=== PATIENT | male | born 1950 | race Hispanic/Latino ===

== ENCOUNTER 2017-02-21 11:36 | Inpatient (IN) | payer MEDICARE ==
[2017-02-21 12:15] LABS: Bilirubin,Urine NEG (Negative); Blood,Urine NEG (Negative); Ketones,Urine NEG (Negative); Leukocyte Esterase,Urine NEG (Negative); Mucus,Urine FEW /HPF; Nitrite,Urine NEG (Negative); Protein,Urine <15 mg/dL mg/dL (Negative); Urobilinogen,Urine < 2.0 mg/dL (<2.0)
--- NOTE | 2017-02-21 12:37 | Cat Scan Report ---
CT HEAD WITHOUT CONTRAST: HISTORY: Head injury. Serial contiguous axial images were obtained through the cranium. Intravenous contrast material was not administered. The ventricles are normal in size and appearance. There is no mass effect or midline shift. No areas of abnormally increased or decreased attenuation are seen. No mass lesion is seen. The mastoid air cells and visualized portions of the sinuses are normal. IMPRESSION: Cranial CT scan within normal limits.
--- NOTE | 2017-02-21 12:39 | Cat Scan Report ---
CT SCAN OF THE CERVICAL SPINE: HISTORY: Neck pain, injury. TECHNIQUE: Contiguous 1.25 mm axial images of the cervical spine were obtained. Sagittal and coronal reformatted images. FINDINGS: There is normal height and alignment of the cervical vertebral bodies. No fracture, subluxation or bone lesion. There is moderate multilevel disc space narrowing which is most prominent at C3-4 and C5-6. 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 The dens is intact. The prevertebral soft tissues are normal thickness. IMPRESSION: No evidence for acute injury. Cervical spondylosis. 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
[2017-02-21] MEDS ORDERED: ZOFRAN IV ONE (13:15)
[2017-02-21] MEDS ORDERED: NACL 0.9% 1000 ML 1,000 ML IV ONE (13:15)
[2017-02-21] MEDS ORDERED: MORPHINE IV ONE (13:15)
--- NOTE | 2017-02-21 13:31 | XRay Report ---
THORACIC SPINE, 3 VIEWS LUMBOSACRAL SPINE, 3 VIEWS History: Back pain after fall, incontinence. Findings: No comparison. Mild osteopenia is suspected. There is normal height and alignment of the thoracic and lumbar vertebral bodies. No compression deformity or malalignment is identified. Moderate disc space narrowing and anterior spurring is noted in the lower thoracic spine. Advanced disc space narrowing and facet arthropathy at L4-5 and L5-S1. Impression: Moderate thoracic and lumbar spondylosis. No acute injury is appreciated. Mild osteopenia.
[2017-02-21] MEDS ORDERED: DILAUDID IV ONE (13:57)
[2017-02-21 14:25] LABS: Basophils % (Auto) 0.5 % (0.0-1.8); Eosinophils % (Auto) 1.4 % (0.0-4.3); Hematocrit 36.6 % (35.5-45.6); Hemoglobin 12.2 gm/dl (11.8-15.2); Mean Corpuscular HGB Conc 33 % (32-34); Mean Corpuscular Hemoglobin 29 pg (28-32); Mean Corpuscular Volume 89 fl (84-94); Platelet Count 236 K/mm3 (140-440); Red Blood Count 4.14 M/mm3 (3.65-5.03); Red Cell Distribution Width 17.1 % (13.2-15.2); White Blood Count 6.6 K/mm3 (4.5-11.0)
--- NOTE | 2017-02-21 14:30 | Emergency Department Report ---
ED Fall HPI - General Chief Complaint: Fall Stated Complaint: NUMBNESS LEGS/LOW/UPPER BACK PAIN Time Seen by Provider: 02/21/17 13:14 Source: patient Mode of arrival: Ambulatory - History of Present Illness MD Complaint: fall -: Sudden Fall From: from height (distance) (3 feet) When Fall Occurred: 4-6 hours [employer] Fall Witnessed: yes, by family Place Fall Occurred: home Loss of Consciousness: none Prolonged Down Time?: no Symptoms Prior to Fall: none Location: back Location - Extremities: Left: Leg, Right: Leg Severity: moderate Severity scale (0 -10): 6 Quality: sharp, dull Context: tripped/slipped Associated Symptoms: numbness. denies: headache, neck pain, chest paint, shortness of breath, abdominal pain, hematuria, lightheaded, vertigo - Related Data Home Medications Medication Instructions Recorded Confirmed Last Taken Gabapentin [Neurontin] 400 mg PO BID 02/21/17 02/25/17 02/24/17 09:03 400mg Previous Rx's Medication Instructions Recorded Last Taken Type clonazePAM [Klonopin] 1 mg PO TID #30 tablet 08/21/16 02/21/17 Rx oxyCODONE [Roxicodone TAB] 30 mg PO Q4HR PRN #40 tablet 08/21/16 02/24/17 11:00 Rx 30mg Acetaminophen [Acetaminophen TAB] 325 mg PO Q4H PRN #30 tablet 02/23/17 Unknown Rx Bisacodyl [Dulcolax suppos] 10 mg MS QDAY PRN #10 supp.rect 02/23/17 Unknown Rx HYDROmorphone [Dilaudid] 2 mg PO Q3H PRN #30 tablet 02/23/17 02/24/17 08:53 Rx 2mg Magnesium Hydroxide [Milk of 30 ml PO Q4H PRN #30 oral.liqd 02/23/17 Unknown Rx Magnesia] predniSONE [Deltasone] 20 mg PO QDAY #30 tablet 02/23/17 02/24/17 09:03 Rx 20mg Allergies Allergy/AdvReac Type Severity Reaction Status Date / Time ketorolac tromethamine Allergy Rash Verified 02/21/17 11:48 [From Toradol] ED Review of Systems ROS: Stated complaint: NUMBNESS LEGS/LOW/UPPER BACK PAIN Other details as noted in HPI Constitutional: denies: chills, fever Eyes: denies: eye pain, eye discharge, vision change ENT: denies: ear pain, throat pain Respiratory: denies: cough, shortness of breath, wheezing Cardiovascular: denies: chest pain, palpitations Endocrine: no symptoms reported Gastrointestinal: denies: abdominal pain, nausea, diarrhea Genitourinary: denies: urgency, dysuria Musculoskeletal: denies: back pain, joint swelling, arthralgia Skin: denies: rash, lesions Neurological: denies: headache, weakness, paresthesias Psychiatric: denies: anxiety, depression Hematological/Lymphatic: denies: easy bleeding, easy bruising ED Past Medical Hx - Past Medical History Hx Deep Vein Thrombosis: (Unknown) Additional medical history: Subarachnoid cyst T1-T5. Laminectomy L4-5 - Surgical History Hx Pacemaker: No Hx Internal Defibrillator: No Hx Cholecystectomy: Yes Additional Surgical History: laminectomy L4-L5 2003. right inguinal Hernia Repair - Social History Smoking Status: Never Smoker Substance Use Type: None - Medications Home Medications: Home Medications Medication Instructions Recorded Confirmed Last Taken Type clonazePAM [Klonopin] 1 mg PO TID #30 tablet 08/21/16 02/25/17 02/21/17 Rx oxyCODONE [Roxicodone TAB] 30 mg PO Q4HR PRN #40 tablet 08/21/16 02/25/17 11:00 Rx 30mg Gabapentin [Neurontin] 400 mg PO BID 02/21/17 02/25/17 02/24/17 09:03 History 400mg Acetaminophen [Acetaminophen TAB] 325 mg PO Q4H PRN #30 tablet 02/23/17 Unknown Rx Bisacodyl [Dulcolax suppos] 10 mg MS QDAY PRN #10 supp.rect 02/23/17 02/25/17 Unknown Rx HYDROmorphone [Dilaudid] 2 mg PO Q3H PRN #30 tablet 02/23/17 02/25/17 02/24/17 08:53 Rx 2mg Magnesium Hydroxide [Milk of 30 ml PO Q4H PRN #30 oral.liqd 02/23/17 02/25/17 Unknown Rx Magnesia] predniSONE [Deltasone] 20 mg PO QDAY #30 tablet 02/23/17 02/25/17 02/24/17 09: 03 Rx 20mg ED Physical Exam - General Limitations: No Limitations General appearance: alert, in no apparent distress - Head Head exam: Present: atraumatic, normocephalic - Eye Eye exam: Present: normal appearance, PERRL - ENT ENT exam: Present: normal exam, normal orophraynx, mucous membranes moist - Neck Neck exam: Present: normal inspection - Respiratory Respiratory exam: Present: normal lung sounds bilaterally. Absent: respiratory distress - Cardiovascular Cardiovascular Exam: Present: regular rate, normal rhythm. Absent: systolic murmur, diastolic murmur, rubs, gallop - GI/Abdominal GI/Abdominal exam: Present: soft, normal bowel sounds. Absent: distended, tenderness, guarding, rebound - Rectal Rectal exam: Present: deferred - Extremities Exam Extremities exam: Present: normal inspection, full ROM (full rom but with pain) , normal capillary refill. Absent: tenderness, pedal edema, joint swelling, calf tenderness - Back Exam Back exam: Present: normal inspection, tenderness (paravertebral tenderness ), muscle spasm, paraspinal tenderness - Neurological Exam Neurological exam: Present: alert, oriented X3, CN II-XII intact, motor sensory deficit - Psychiatric Psychiatric exam: Present: normal affect, normal mood - Skin Skin exam: Present: warm, dry, intact, normal color. Absent: rash ED Course Vital Signs 02/21/17 02/21/17 02/21/17 11:37 12:57 12:58 Temperature 97.8 F Pulse Rate 103 H 91 H Respiratory 19 14 Rate Blood Pressure 138/95 129/77 Blood Pressure [Left] O2 Sat by Pulse 98 99 99 Oximetry 02/21/17 02/21/17 02/21/17 12:59 13:00 13:02 Temperature Pulse Rate 92 H 90 Respiratory 10 L 12 19 Rate Blood Pressure 129/77 123/79 Blood Pressure [Left] O2 Sat by Pulse 99 100 98 Oximetry 02/21/17 02/21/17 02/21/17 14:00 14:30 15:00 Temperature Pulse Rate 77 78 Respiratory 12 18 10 L Rate Blood Pressure 136/77 136/77 Blood Pressure [Left] O2 Sat by Pulse 100 98 Oximetry 02/21/17 02/21/17 02/21/17 16:00 17:00 21:13 Temperature Pulse Rate 86 85 82 Respiratory 12 11 L 20 Rate Blood Pressure 136/77 136/77 Blood Pressure 128/70 [Left] O2 Sat by Pulse 100 98 100 Oximetry ED Medical Decision Making - Lab Data Result diagrams: 02/21/17 13:55 02/22/17 04:47 - Medical Decision Making Patient with lower back pain , he is unable to get up frpm the bed , CT head / cspine / t spine / lumbar spine all with no evidence of emergency compression. Will admit for pain control and possible PT/rehab fro his back pain , talked to dr. pimentel and agree with plan for admission. Critical care attestation.: If time is entered above; I have spent that time in minutes in the direct care of this critically ill patient, excluding procedure time. ED Disposition Clinical Impression: Back pain at L4-L5 level Disposition: OP ADMITTED IP TO THIS HOSP Is pt being admited?: Yes Does the pt Need Aspirin: No Condition: Fair
[2017-02-21 14:32] LABS: Alanine Aminotransferase 13 units/L (7-56); Albumin 3.5 g/dL (3.9-5); Albumin/Globulin Ratio 1.5 %; Alkaline Phosphatase 73 units/L (35-129); Anion Gap 14 mmol/L; BUN/Creatinine Ratio 8.57; Bilirubin,Total 0.6 mg/dL (0.1-1.2); Blood Urea Nitrogen 6 mg/dL (9-20); Calcium 8.6 mg/dL (8.4-10.2); Carbon Dioxide 27 mmol/L (22-30); Chloride 101.7 mmol/L (98-107); Glucose 83 mg/dL (75-100); Potassium 3.2 mmol/L (3.6-5.0); Sodium 139 mmol/L (137-145); Total Protein 5.9 g/dL (6.3-8.2)
[2017-02-21] MEDS ORDERED: MORPHINE ONE (15:44)
--- NOTE | 2017-02-21 15:54 | Cat Scan Report ---
FINAL REPORT PROCEDURE: CT LUMBAR SPINE WO CON TECHNIQUE: Computerized axial tomography of the lumbar spine was performed from T12 to the sacrum without contrast material. HISTORY: Fall COMPARISON: 01/05/2016 FINDINGS: Diffuse osteoporosis of the bones. Areas of sclerosis including posterior sacrum anterior sacral areas, anterior SI joint regions anterior surface of the iliac bones and portions of sacral ala and scattered areas of the facets. Evidence of prior lumbar spine surgery. Severe disc space narrowing at the L4-5 level. No definitive evidence of acute fracture seen at this time. moderate disc bulging L4-5 mild to moderate L3-4. No definitive evidence of acute fracture suspected at this time. If symptoms and or concern persists recommend followup CT scan. Correlation with nuclear medicine bone scan may also be of use. MRI may be helpful. Aortic atherosclerosis IMPRESSION: No definite evidence of acute fracture
--- NOTE | 2017-02-21 16:08 | Cat Scan Report ---
FINAL REPORT PROCEDURE: CT THORACIC SPINE WO CON TECHNIQUE: Computerized axial tomography of the thoracic spine was performed from C7 - L1 without contrast material. HISTORY: Fall pain COMPARISON: 01/05/2016 FINDINGS: Mild to moderate thoracic spine kyphosis. Prominent anterior osteophytes right paracentral mid to lower thoracic spine with flowing eburnation. Multilevel facet arthropathy. Scattered sclerotic foci in the bones vertebral bodies posterior elements including right paracentral T2 vertebral body 7 x 6 millimeters. No definite evidence acute fracture COPD. Spiculated 2 millimeter opacity right upper lung zone. Posterior medial pleural thickening and slight atelectasis. Atherosclerotic aorta. Mild dextroscoliosis. IMPRESSION: No definite evidence of acute fracture
[2017-02-21] MEDS ORDERED: TYLENOL #3 PO ONE (17:15)
[2017-02-21] MEDS ORDERED: ATIVAN ONE (17:37)
[2017-02-21] MEDS ORDERED: ATIVAN IV ONE (17:38)
--- NOTE | 2017-02-21 20:03 | Magnetic Resonance Report ---
FINAL REPORT PROCEDURE: MR LUMBAR SPINE WO/W CON TECHNIQUE: Magnetic resonance imaging of the lumbar spine was performed using standard pulse sequences before and after the IV injection of paramagnetic contrast. CPT 10609 HISTORY: back pain COMPARISON: CT 02/21/2017 FINDINGS: L1-2: No significant abnormality . L2-3: No significant abnormality . L3-4: No significant abnormality . L4-5: There is disc space narrowing. Small posterior disc bulge and posterior osteophytes are noted. No significant spinal stenosis. Mild bilateral neural foraminal narrowing. Facet arthritic changes are noted. L5-S1: No significant abnormality . Other: No marrow edema is seen to suggest acute fracture. No abnormal enhancement is seen. Note that the entirety of the sacrum is not imaged or evaluated if there is concern for sacral fracture. IMPRESSION: No fracture is identified. No areas of abnormal enhancement. Note that the sacrum is not fully imaged on this exam.
--- NOTE | 2017-02-21 21:06 | History and Physical Report ---
History of Present Illness Date of examination: 02/21/17 Date of admission: 02/21/2017 Chief complaint: Chief complaint: Severe low back pain secondary to fall few hours ago. History of present illness: This is a 66 y/o male with h/o back surgery and low back pain presented with severe low back pain and difficulty walking. Patient apparently fell from a ladder 3 feet height on his back few hours ago. Patient has severe pain 10 over 10 with radiation into the right thigh. Patient had MRI in the emergency room and was negative for any acute findings. Patient has intractable pain and unable to walk secondary to pain hence being admitted for observation and treatment. No chest pain no shortness of breath. No weakness in the legs. Past medical History: h/o chronic back pain and generalized anxiety disorder Past surgical History: s/p back surgery Social History: Lives with family, denies any smoking, drinking and elicit drug abuse. Family History: Significant for hypertension Review of System: Constitutional: no fever, no chills, no weight loss Ears, eyes, nose, mouth and throat: no nasal congestion, no nasal discharge, no sinus pressure, no vision change, no red eye. Neck: No neck pain or rigidity. Cardiovascular: No chest pain, no orthopnea, no palpitations, no leg swelling Respiratory: No shortness of breath, no cough, no congestion, no wheezing Gastrointestinal: no abdominal pain, no nausea, no vomiting Genitourinary : no dysuria, no hematuria Musculoskeletal: Severe back pain 10 x 10 with radiation to the right thigh Integumentary: no rash, no pruritis Neurological: no paresthesias, no numbness, no tingling Endocrine: no cold or heat intolerance, no polyuria or polydipsia Hematologic/Lymphatic: no easy bruising, no easy bleeding, no gland swelling Allergic/Immunologic: no urticaria, no angioedema. Medications and Allergies Allergies Allergy/AdvReac Type Severity Reaction Status Date / Time ketorolac tromethamine Allergy Rash Verified 02/21/17 11:48 [From Toradol] Home Medications Medication Instructions Recorded Confirmed Last Taken Type clonazePAM [Klonopin] 1 mg PO TID #30 tablet 08/21/16 02/21/17 02/21/17 Rx oxyCODONE [Roxicodone TAB] 30 mg PO Q4HR PRN #40 tablet 08/21/16 02/21/17 Rx Gabapentin [Neurontin] 400 mg PO BID 02/21/17 02/21/17 02/21/17 History Exam - Physical Exam Narrative exam: Well-developed well-nourished male lying in bed with severe pain in the lower back. - Constitutional Vitals: Temp Pulse Resp BP Pulse Ox 97.8 F 85 11 L 136/77 98 02/21/17 11:37 02/21/17 17:00 02/21/17 17:00 02/21/17 17:00 02/21/17 17:00 General appearance: Present: no acute distress, well-nourished - EENT Eyes: Present: PERRL ENT: hearing intact, clear oral mucosa - Neck Neck: Present: supple, normal ROM - Respiratory Respiratory effort: normal Respiratory: bilateral: CTA - Cardiovascular Heart rate: 76 Rhythm: regular Heart Sounds: Present: S1 & S2. Absent: rub, click - Extremities Extremities: no ischemia, pulses symmetrical, No edema Extremity abnormal: other (straight leg raising test abnormal severe tenderness in the L5-S1 region) Peripheral Pulses: within normal limits - Abdominal General gastrointestinal: Present: soft, non-tender, non-distended, normal bowel sounds Male genitourinary: Present: normal - Rectal Rectal Exam: deferred - Integumentary Integumentary: Present: clear, warm, dry - Musculoskeletal Musculoskeletal: gait normal, strength equal bilaterally - Psychiatric Psychiatric: appropriate mood/affect, intact judgment & insight - Neurologic Neurologic: CNII-XII intact, moves all extremities - Allied Health Allied health notes reviewed: nursing, case management Results - Labs CBC & Chem 7: 02/21/17 13:55 02/21/17 13:55 Labs: Laboratory Last Values WBC 6.6 K/mm3 (4.5-11.0) 02/21/17 13:55 RBC 4.14 M/mm3 (3.65-5.03) 02/21/17 13:55 Hgb 12.2 gm/dl (11.8-15.2) 02/21/17 13:55 Hct 36.6 % (35.5-45.6) 02/21/17 13:55 MCV 89 fl (84-94) 02/21/17 13:55 MCH 29 pg (28-32) 02/21/17 13:55 MCHC 33 % (32-34) 02/21/17 13:55 RDW 17.1 % (13.2-15.2) H 02/21/17 13:55 Plt Count 236 K/mm3 (140-440) 02/21/17 13:55 Lymph % (Auto) 29.4 % (13.4-35.0) 02/21/17 13:55 [place] % (Auto) 9.7 % (0.0-7.3) H 02/21/17 13:55 Eos % (Auto) 1.4 % (0.0-4.3) 02/21/17 13:55 Baso % (Auto) 0.5 % (0.0-1.8) 02/21/17 13:55 Lymph # 1.9 K/mm3 (1.2-5.4) 02/21/17 13:55 [place] # 0.6 K/mm3 (0.0-0.8) 02/21/17 13:55 Eos # 0.1 K/mm3 (0.0-0.4) 02/21/17 13:55 Baso # 0.0 K/mm3 (0.0-0.1) 02/21/17 13:55 Seg Neutrophils % 59.0 % (40.0-70.0) 02/21/17 13:55 Seg Neutrophils # 3.9 K/mm3 (1.8-7.7) 02/21/17 13:55 Sodium 139 mmol/L (137-145) 02/21/17 13:55 Potassium 3.2 mmol/L (3.6-5.0) L 02/21/17 13:55 Chloride 101.7 mmol/L (98-107) 02/21/17 13:55 Carbon Dioxide 27 mmol/L (22-30) 02/21/17 13:55 Anion Gap 14 mmol/L 02/21/17 13:55 BUN 6 mg/dL (9-20) L 02/21/17 13:55 Creatinine 0.7 mg/dL (0.8-1.5) L 02/21/17 13:55 Estimated GFR > 60 ml/min 02/21/17 13:55 BUN/Creatinine Ratio 8.57 % 02/21/17 13:55 Glucose 83 mg/dL (75-100) 02/21/17 13:55 Calcium 8.6 mg/dL (8.4-10.2) 02/21/17 13:55 Total Bilirubin 0.6 mg/dL (0.1-1.2) 02/21/17 13:55 AST 13 units/L (5-40) 02/21/17 13:55 ALT 13 units/L (7-56) 02/21/17 13:55 Alkaline Phosphatase 73 units/L (35-129) 02/21/17 13:55 Total Protein 5.9 g/dL (6.3-8.2) L 02/21/17 13:55 Albumin 3.5 g/dL (3.9-5) L 02/21/17 13:55 Albumin/Globulin Ratio 1.5 % 02/21/17 13:55 Urine Color Yellow (Yellow) 02/21/17 12:00 Urine Turbidity Clear (Clear) 02/21/17 12:00 Urine pH 5.0 (5.0-7.0) 02/21/17 12:00 Ur Specific [place] 1.020 (1.003-1.030) 02/21/17 12:00 Urine Protein <15 mg/dl mg/dL (Negative) 02/21/17 12:00 Urine Glucose (UA) Neg mg/dL (Negative) 02/21/17 12:00 Urine Ketones Neg mg/dL (Negative) 02/21/17 12:00 Urine Blood Neg (Negative) 02/21/17 12:00 Urine Nitrite Neg (Negative) 02/21/17 12:00 Urine Bilirubin Neg (Negative) 02/21/17 12:00 Urine Urobilinogen < 2.0 mg/dL (<2.0) 02/21/17 12:00 Ur Leukocyte Esterase Neg (Negative) 02/21/17 12:00 Urine WBC (Auto) 4.0 /HPF (0.0-6.0) 02/21/17 12:00 Urine RBC (Auto) 4.0 /HPF (0.0-6.0) 02/21/17 12:00 U Epithel Cells (Auto) < 1.0 /HPF (0-13.0) 02/21/17 12:00 Urine Mucus Few /HPF 02/21/17 12:00 Short CBC 02/21/17 Range/Units 13:55 WBC 6.6 (4.5-11.0) K/mm3 Hgb 12.2 (11.8-15.2) gm/dl Hct 36.6 (35.5-45.6) % Plt Count 236 (140-440) K/mm3 BMP 02/21/17 13:55 Sodium 139 Potassium 3.2 L Chloride 101.7 Carbon Dioxide 27 BUN 6 L Creatinine 0.7 L Glucose 83 Calcium 8.6 Liver Function 02/21/17 Range/Units 13:55 Total Bilirubin 0.6 (0.1-1.2) mg/dL AST 13 (5-40) units/L ALT 13 (7-56) units/L Alkaline Phosphatase 73 (35-129) units/L Albumin 3.5 L (3.9-5) g/dL Urine 02/21/17 Range/Units 12:00 Urine Color Yellow (Yellow) Urine pH 5.0 (5.0-7.0) Ur Specific [place] 1.020 (1.003-1.030) Urine Protein <15 mg/dl (Negative) mg/dL Urine Glucose (UA) Neg (Negative) mg/dL - Imaging and Cardiology Imaging and Cardiology: Imaging studies-patient had multiple CAT scans of the spine and L-spine C-spine and also MRI of the lumbar spine. MRI showed a small disc bulge at L4-L5. Also lumbar spondylosis. No nerve impingement. Assessment and Plan Assessment and plan: Assessment and plan: #1 lumbar radiculopathy with intractable pain.: Patient unable to walk hence being admitted for pain management and physical therapy #2 generalized anxiety disorder: Continue anxiolytics #3 chronic pain: Continue medication #4 DVT prophylaxis Lovenox 40 mg subcutaneous daily. Advance Directives: No (full code) VTE prophylaxis?: Chemical Plan of care discussed with patient/family: Yes
[2017-02-21] MEDS ORDERED: DILAUDID IV PRN (21:25)
[2017-02-21] MEDS ORDERED: TYLENOL PO PRN (21:25)
[2017-02-21] MEDS ORDERED: ZOFRAN IV PRN (21:25)
[2017-02-21] MEDS ORDERED: MILK OF MAGNESIA PO PRN (21:25)
[2017-02-21] MEDS ORDERED: DULCOLAX PR PRN (21:25)
[2017-02-21] MEDS ORDERED: D5NS 1,000 ML IV SCH (22:00)
[2017-02-21] MEDS: NEURONTIN PO SCH (22:02)
[2017-02-21] MEDS: ROXICODONE PO PRN (22:03)
[2017-02-21] MEDS: LOVENOX SUB-Q SCH (22:18)
[2017-02-22] MEDS: DILAUDID PO PRN ×6 (01:01→23:44)
--- NOTE | 2017-02-22 01:35 | Admit Criteria Form ---
Admission Criteria Documentation: PAIN MANAGEMENT [facility] Clinical Indications for Admission to Inpatient Care (Place 'X' for any and all applicable criteria): Hospital admission is needed for appropriate care of the patient because of 1 or more of the following are present (1)(2)(3)(4)(5): [ ]I. Severe pain requiring acute inpatient management as indicated by 1 or more of the following (2)(5)(10): [ ]a) Continuous or frequent (eg, every 2 to 4 hours) parenteral analgesics required [A] [ ]b) Necessity (ie, alternative approaches not effective) for analgesic regimen that can only be performed or initiated in inpatient setting [X ]II. Pain causing debilitation to the point of inability to function or be supported at any other level of care [ ]III. Severe side effects from pain medications as indicated by ANY ONE of the following (12)(13)(14)(15): [ ]a) Uncontrollable seizures [ ]b) Cardiac arrhythmias of immediate concern [ ]c) Dehydration that is severe or persistent [ ]d) Vomiting that is severe or persistent [ ]e) Altered mental status that is severe or persistent [ ]f) Obstipation with inadequate GI function to maintain nutrition The original [facility] content created by [facility] has been revised. The portions of the content which have been revised are identified through the use of italic text or in bold, and [facility] has neither reviewed nor approved the modified material. All other unmodified content is copyright [facility]. Please see references footnoted in the original [facility] edition 2016 Admission Criteria Met: Yes
[2017-02-22] MEDS: ROXICODONE PO PRN ×4 (05:57→22:23)
[2017-02-22 06:15] LABS: Alanine Aminotransferase 11 units/L (7-56); Albumin 3.1 g/dL (3.9-5); Albumin/Globulin Ratio 1.5 %; Alkaline Phosphatase 67 units/L (35-129); Anion Gap 17 mmol/L; Bilirubin,Total 0.6 mg/dL (0.1-1.2); Blood Urea Nitrogen 4 mg/dL (9-20); Calcium 8.1 mg/dL (8.4-10.2); Carbon Dioxide 22 mmol/L (22-30); Chloride 109.9 mmol/L (98-107); Glucose 95 mg/dL (75-100); Sodium 146 mmol/L (137-145); Total Protein 5.2 g/dL (6.3-8.2)
[2017-02-22] MEDS ORDERED: K-DUR PO ONE (08:00)
[2017-02-22] MEDS ORDERED: NON-FORMULARY (Clonazepam [Klonopin] 1 MG) PO SCH (08:00)
[2017-02-22] MEDS: NEURONTIN PO SCH ×2 (09:53→22:24)
[2017-02-22] MEDS: LOVENOX SUB-Q SCH (09:53)
--- NOTE | 2017-02-22 10:52 | Discharge Summary ---
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 He is on Dilaudid 2mg po q8hrs and Oxycodone 30mg po q4hrs, which are given to him by Dr. Andrade in [place] (I told him i would not be giving him any narcotics for home and he should get all narcotics from one doctor, Dr. Andrade). He presented with report of fall from 3 feet ladder. Which is interesting because he has history of falls, so why would he be on a ladder in the first place. Also , back in 2015 he had small bilateral PE on CTA chest but he denies knowing about any PE/blood clots and he has not been on anticoagulation. I Reviewed all imaging. No acute fracture. at bedside asking for that patient's narcotics be given correctly. -Fall: counseling done -Spinal spondylosis, physical therapy -Difficulty ambulating -Hypokalemia, replace -CPS, adjusted narcotics -Hypernatremia, stop ivf -Disposition: either home with pt or placement, await Physical therapist recommendation. Disposition: DC/TX HOME UNDER HOME HEALTH Time spent for discharge: 32 minutes Core Measure Documentation - Palliative Care Palliative Care/ Comfort Measures: Not Applicable - Core Measures Any of the following diagnoses?: none - VTE Discharge Requirements Deep Vein Thrombosis/Pulmonary Embolism Present on Admission: No Has pt received <5 days of overlap therapy or INR<2.0: No Anticoagulant overlap therapy prescribed at discharge: No Contraindication No Overlap Therapy order at DC: Not Indicated Exam - Physical Exam Narrative exam: GEN: WDWN, NAD, AWAKE, ALERT, ORIENTATED 3 HEENT: NCAT, PERRL, EOMI, OP CLEAR NECK: SUPPLE, NO THYROMEGALY, NO JVD, NO LAD CVS: RRR, NORMAL S1S2 LUNGS/CHEST: CTA B, NORMAL CHEST EXPANSION B, GOOD AIR ENTRY B ABD: SOFT NTND, GBS, NO REBOUND OR GUARDING EXT/SKIN: NO SIGNIFICANT EDEMA OR RASH MSK: FROM X 4 EXTREMITIES NEURO: CN 2-12 GROSSLY INTACT, NO new FOCAL DEFICITS PSY: CALM - Constitutional Vitals: Temp Pulse Resp BP Pulse Ox 97.8 F 98 H 16 126/83 98 02/22/17 08:21 02/22/17 08:21 02/22/17 08:21 02/22/17 08:21 02/22/17 08:21 Plan Activity: advance as tolerated (no strenous activites until cleared by PCP. ), up only with assistance Diet: low salt Special Instructions: physical therapy Follow up with: [facility] [Provider Group] - 7 Days
--- NOTE | 2017-02-22 15:17 | Progress Note ---
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 He is on Dilaudid 2mg po q8hrs and Oxycodone 30mg po q4hrs, which are given to him by Dr. Andrade in [place] (I told him i would not be giving him any narcotics for home and he should get all narcotics from one doctor, Dr. Andrade). He presented with report of fall from 3 feet ladder. Which is interesting because he has history of falls, so why would he be on a ladder in the first place. Also , back in 2015 he had small bilateral PE on CTA chest but he denies knowing about any PE/blood clots and he has not been on anticoagulation. I Reviewed all imaging. No acute fracture. at bedside asking for that patient's narcotics be given correctly. -Fall: counseling done -Spinal spondylosis, physical therapy -Difficulty ambulating -Hypokalemia, replace -CPS, adjusted narcotics -Hypernatremia, stop ivf -Disposition: either home with pt or placement, await Physical therapist recommendation==>acute rehab History Interval history: Patient seen and examined. Follow up on inability to walk and low back pain which is still present. Overnight uneventful. No cp, sob, n/v or severe headaches. Imaging, old records, testing, labs, nursing notes reviewed. Plan discussed with patient. Hospitalist Physical - Physical exam Narrative exam: GEN: WDWN, NAD, AWAKE, ALERT, ORIENTATED 3 HEENT: NCAT, PERRL, EOMI, OP CLEAR NECK: SUPPLE, NO THYROMEGALY, NO JVD, NO LAD CVS: RRR, NORMAL S1S2 LUNGS/CHEST: CTA B, NORMAL CHEST EXPANSION B, GOOD AIR ENTRY B ABD: SOFT NTND, GBS, NO REBOUND OR GUARDING EXT/SKIN: NO SIGNIFICANT EDEMA OR RASH MSK: FROM X 4 EXTREMITIES NEURO: CN 2-12 GROSSLY INTACT, NO new FOCAL DEFICITS PSY: CALM - Constitutional Vitals: Temp Pulse Resp BP Pulse Ox 97.8 F 98 H 16 126/83 98 02/22/17 08:21 02/22/17 08:21 02/22/17 08:21 02/22/17 08:21 02/22/17 08:21 General appearance: Present: no acute distress, well-nourished Results - Labs CBC & Chem 7: 02/21/17 13:55 02/22/17 04:47 Labs: Laboratory Last Values WBC 6.6 K/mm3 (4.5-11.0) 02/21/17 13:55 RBC 4.14 M/mm3 (3.65-5.03) 02/21/17 13:55 Hgb 12.2 gm/dl (11.8-15.2) 02/21/17 13:55 Hct 36.6 % (35.5-45.6) 02/21/17 13:55 MCV 89 fl (84-94) 02/21/17 13:55 MCH 29 pg (28-32) 02/21/17 13:55 MCHC 33 % (32-34) 02/21/17 13:55 RDW 17.1 % (13.2-15.2) H 02/21/17 13:55 Plt Count 236 K/mm3 (140-440) 02/21/17 13:55 Lymph % (Auto) 29.4 % (13.4-35.0) 02/21/17 13:55 [place] % (Auto) 9.7 % (0.0-7.3) H 02/21/17 13:55 Eos % (Auto) 1.4 % (0.0-4.3) 02/21/17 13:55 Baso % (Auto) 0.5 % (0.0-1.8) 02/21/17 13:55 Lymph # 1.9 K/mm3 (1.2-5.4) 02/21/17 13:55 [place] # 0.6 K/mm3 (0.0-0.8) 02/21/17 13:55 Eos # 0.1 K/mm3 (0.0-0.4) 02/21/17 13:55 Baso # 0.0 K/mm3 (0.0-0.1) 02/21/17 13:55 Seg Neutrophils % 59.0 % (40.0-70.0) 02/21/17 13:55 Seg Neutrophils # 3.9 K/mm3 (1.8-7.7) 02/21/17 13:55 Sodium 146 mmol/L (137-145) H D 02/22/17 04:47 Potassium 3.0 mmol/L (3.6-5.0) L 02/22/17 04:47 Chloride 109.9 mmol/L (98-107) H 02/22/17 04:47 Carbon Dioxide 22 mmol/L (22-30) 02/22/17 04:47 Anion Gap 17 mmol/L 02/22/17 04:47 BUN 4 mg/dL (9-20) L 02/22/17 04:47 Creatinine 0.5 mg/dL (0.8-1.5) L 02/22/17 04:47 Estimated GFR > 60 ml/min 02/22/17 04:47 BUN/Creatinine Ratio 8.00 % 02/22/17 04:47 Glucose 95 mg/dL (75-100) 02/22/17 04:47 Calcium 8.1 mg/dL (8.4-10.2) L 02/22/17 04:47 Total Bilirubin 0.6 mg/dL (0.1-1.2) 02/22/17 04:47 AST 12 units/L (5-40) 02/22/17 04:47 ALT 11 units/L (7-56) 02/22/17 04:47 Alkaline Phosphatase 67 units/L (35-129) 02/22/17 04:47 Total Protein 5.2 g/dL (6.3-8.2) L 02/22/17 04:47 Albumin 3.1 g/dL (3.9-5) L 02/22/17 04:47 Albumin/Globulin Ratio 1.5 % 02/22/17 04:47 Urine Color Yellow (Yellow) 02/21/17 12:00 Urine Turbidity Clear (Clear) 02/21/17 12:00 Urine pH 5.0 (5.0-7.0) 02/21/17 12:00 Ur Specific [place] 1.020 (1.003-1.030) 02/21/17 12:00 Urine Protein <15 mg/dl mg/dL (Negative) 02/21/17 12:00 Urine Glucose (UA) Neg mg/dL (Negative) 02/21/17 12:00 Urine Ketones Neg mg/dL (Negative) 02/21/17 12:00 Urine Blood Neg (Negative) 02/21/17 12:00 Urine Nitrite Neg (Negative) 02/21/17 12:00 Urine Bilirubin Neg (Negative) 02/21/17 12:00 Urine Urobilinogen < 2.0 mg/dL (<2.0) 02/21/17 12:00 Ur Leukocyte Esterase Neg (Negative) 02/21/17 12:00 Urine WBC (Auto) 4.0 /HPF (0.0-6.0) 02/21/17 12:00 Urine RBC (Auto) 4.0 /HPF (0.0-6.0) 02/21/17 12:00 U Epithel Cells (Auto) < 1.0 /HPF (0-13.0) 02/21/17 12:00 Urine Mucus Few /HPF 02/21/17 12:00
--- NOTE | 2017-02-22 17:27 | Consultation ---
History of Present Illness - Reason for Consult Consult date: 02/22/17 Evaluate for Acute IRU - History of Present Illness 66 y.o. male who reports falling backwards off of a ladder while attempting to remove an AC unit at home. Pt fell onto low back; reports episode of urinary incontinence once prior to coming to the hospital. Imaging negative for any acute fracture or spinal cord abnormalities; small posterior disc bulge noted at L4-5. On today, pt continues to report LE weakness that has slowly improved and ongoing low back pain. Past History Past Medical History: other (low back pain) Past Surgical History: hernia repair (right inguinal hernia), Other (left knee; lumbar surgery) Social history: , lives with family. denies: smoking, alcohol abuse Family history: diabetes Medications and Allergies Allergies Allergy/AdvReac Type Severity Reaction Status Date / Time ketorolac tromethamine Allergy Rash Verified 02/21/17 11:48 [From Toradol] Home Medications Medication Instructions Recorded Confirmed Last Taken Type clonazePAM [Klonopin] 1 mg PO TID #30 tablet 08/21/16 02/21/17 02/21/17 Rx oxyCODONE [Roxicodone TAB] 30 mg PO Q4HR PRN #40 tablet 08/21/16 02/21/17 Rx Gabapentin [Neurontin] 400 mg PO BID 02/21/17 02/21/17 02/21/17 History Active Meds: Active Medications Acetaminophen (Tylenol) 650 mg PO Q4H PRN PRN Reason: Pain MILD(1-3)/Fever >100.5/ALEXANDRE Bisacodyl (Dulcolax) 10 mg ME QDAY PRN PRN Reason: Constipation unrelieved by MOM Clonazepam (Klonopin) 1 mg PO TID [facility] Enoxaparin Sodium (Lovenox) 40 mg SUB-Q QDAY [facility] Last Admin: 02/22/17 09:53 Dose: 40 mg Gabapentin (Neurontin) 400 mg PO BID [facility] Last Admin: 02/22/17 09:53 Dose: 400 mg Hydromorphone HCl (Dilaudid) 2 mg PO Q3H PRN PRN Reason: Pain , Severe (7-10) Last Admin: 02/22/17 15:36 Dose: 2 mg Magnesium Hydroxide (Milk Of Magnesia) 30 ml PO Q4H PRN PRN Reason: Constipation Ondansetron HCl (Zofran) 4 mg IV Q3H PRN PRN Reason: N/V unrelieved by Reglan Oxycodone HCl (Roxicodone) 30 mg PO Q4H PRN PRN Reason: Pain , Severe (7-10) Last Admin: 02/22/17 14:08 Dose: 30 mg Review of Systems All systems: negative Ears, nose, mouth and throat: no headache Cardiovascular: no chest pain Respiratory: no cough Gastrointestinal: no nausea, no vomiting Genitourinary Male: no dysuria Musculoskeletal: neck pain, low back pain Neurological: weakness (BLE), gait dysfunction Exam - Constitutional Vitals: Vital Signs - 12hr 02/22/17 02/22/17 08:21 16:47 Temperature 97.8 F 98.9 F Pulse Rate [ 98 H 80 Right Radial] Respiratory 16 20 Rate Blood Pressure 126/83 110/72 [Right Arm] O2 Sat by Pulse 98 Oximetry General appearance: no acute distress, other (sitting up in bed; present) - EENT Eyes: EOM intact ENT: hearing intact - Neck Neck: supple, normal ROM - Respiratory Respiratory effort: normal Respiratory: bilateral: CTA - Cardiovascular Rhythm: regular Heart Sounds: Present: S1 & S2 - Extremities Extremities: No edema - Gastrointestinal General gastrointestinal: Present: soft, non-tender, non-distended, normal bowel sounds - Integumentary Integumentary: Present: clear - Musculoskeletal Musculoskeletal: other (tender to palpation at mid low back over area of prior surgical incision) - Neurologic Neurologic: CNII-XII intact, other (2/5 strength at BLE; limited effort due to pain with movement; decreased sensation at BLE compared to BUE) - Psychiatric Psychiatric: appropriate mood/affect, intact judgment & insight, memory intact, cooperative - Allied health notes Allied health notes reviewed: PT (supervision to modA for bed mobility; maxA for transfers; no gait) FIMS assesment as documented by PT/OT/ST: Locomotion- walk/wheelchair Ambulation Distance 0 - Labs CBC & Chem 7: 02/21/17 13:55 02/22/17 04:47 Labs: Laboratory Results - last 72 hr 02/22/17 04:47 Sodium 146 H D Potassium 3.0 L Chloride 109.9 H Carbon Dioxide 22 Anion Gap 17 BUN 4 L Creatinine 0.5 L Estimated GFR > 60 BUN/Creatinine Ratio 8.00 Glucose 95 Calcium 8.1 L Total Bilirubin 0.6 AST 12 ALT 11 Alkaline Phosphatase 67 Total Protein 5.2 L Albumin 3.1 L Albumin/Globulin Ratio 1.5 Assessment and Plan Patient was assessed and evaluated for Acute Inpatient Rehab Unit. 66 y.o. male s/p fall off a ladder; pt now with acute exacerbation of chronic low back pain resulting in gait dysfunction. Pt is independent with ADLs, gait and transfers at baseline and does not utilize an assistive device; however, is on chronic narcotics. Pt was only able to stand for a 30 secs with PT, unable to ambulate; limited by pain. Case discussed with IM; will trial oral steroids to improve pain control; F/U with PT in AM for progress. Placement recommendations to follow. - Patient Problems (1) Fall Current Visit: No Status: Acute Qualifiers: Encounter type: initial encounter Qualified Code(s): W19.XXXA - Unspecified fall, initial encounter (2) Chronic pain syndrome Current Visit: Yes Status: Acute
[2017-02-22] MEDS: DELTASONE PO SCH (18:24)
[2017-02-23] MEDS: ROXICODONE PO PRN ×6 (02:44→22:17)
[2017-02-23] MEDS: DILAUDID PO PRN ×4 (08:01→19:49)
--- NOTE | 2017-02-23 08:45 | Progress Note ---
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 He is on Dilaudid 2mg po q8hrs and Oxycodone 30mg po q4hrs, which are given to him by Dr. Andrade in [place] (I told him i would not be giving him any narcotics for home and he should get all narcotics from one doctor, Dr. Andrade). He presented with report of fall from 3 feet ladder. Which is interesting because he has history of falls, so why would he be on a ladder in the first place. Also , back in 2015 he had small bilateral PE on CTA chest but he denies knowing about any PE/blood clots and he has not been on anticoagulation. I Reviewed all imaging. No acute fracture. at bedside asking for that patient's narcotics be given correctly. -Fall: counseling done -Spinal spondylosis, physical therapy -Difficulty ambulating -Hypokalemia, replace -CPS, adjusted narcotics -Hypernatremia, stop ivf -Disposition: either home with pt or placement, await Physical therapist recommendation==>acute rehab d/w Dr. Singh yesterday. Pt not participating enough with PT. Steroids ordered and is helping some. Plan is PT and Rehab to re-evaluate today. History Interval history: Patient seen and examined. Follow up on inability to walk and low back pain which is still present. Overnight uneventful. No cp, sob, n/v or severe headaches. Imaging, old records, testing, labs, nursing notes reviewed. Plan discussed with patient. Hospitalist Physical - Physical exam Narrative exam: GEN: WDWN, NAD, AWAKE, ALERT, ORIENTATED 3 HEENT: NCAT, PERRL, EOMI, OP CLEAR NECK: SUPPLE, NO THYROMEGALY, NO JVD, NO LAD CVS: RRR, NORMAL S1S2 LUNGS/CHEST: CTA B, NORMAL CHEST EXPANSION B, GOOD AIR ENTRY B ABD: SOFT NTND, GBS, NO REBOUND OR GUARDING EXT/SKIN: NO SIGNIFICANT EDEMA OR RASH MSK: FROM X 4 EXTREMITIES NEURO: CN 2-12 GROSSLY INTACT, NO new FOCAL DEFICITS PSY: CALM - Constitutional Vitals: Temp Pulse Resp BP Pulse Ox 98.0 F 69 18 127/72 98 02/23/17 08:00 02/23/17 08:00 02/23/17 08:00 02/23/17 08:00 02/23/17 08:00 General appearance: Present: no acute distress, other (sitting up in bed; present) Results - Labs CBC & Chem 7: 02/21/17 13:55 02/22/17 04:47 Labs: Laboratory Last Values WBC 6.6 K/mm3 (4.5-11.0) 02/21/17 13:55 RBC 4.14 M/mm3 (3.65-5.03) 02/21/17 13:55 Hgb 12.2 gm/dl (11.8-15.2) 02/21/17 13:55 Hct 36.6 % (35.5-45.6) 02/21/17 13:55 MCV 89 fl (84-94) 02/21/17 13:55 MCH 29 pg (28-32) 02/21/17 13:55 MCHC 33 % (32-34) 02/21/17 13:55 RDW 17.1 % (13.2-15.2) H 02/21/17 13:55 Plt Count 236 K/mm3 (140-440) 02/21/17 13:55 Lymph % (Auto) 29.4 % (13.4-35.0) 02/21/17 13:55 [place] % (Auto) 9.7 % (0.0-7.3) H 02/21/17 13:55 Eos % (Auto) 1.4 % (0.0-4.3) 02/21/17 13:55 Baso % (Auto) 0.5 % (0.0-1.8) 02/21/17 13:55 Lymph # 1.9 K/mm3 (1.2-5.4) 02/21/17 13:55 [place] # 0.6 K/mm3 (0.0-0.8) 02/21/17 13:55 Eos # 0.1 K/mm3 (0.0-0.4) 02/21/17 13:55 Baso # 0.0 K/mm3 (0.0-0.1) 02/21/17 13:55 Seg Neutrophils % 59.0 % (40.0-70.0) 02/21/17 13:55 Seg Neutrophils # 3.9 K/mm3 (1.8-7.7) 02/21/17 13:55 Sodium 146 mmol/L (137-145) H D 02/22/17 04:47 Potassium 3.0 mmol/L (3.6-5.0) L 02/22/17 04:47 Chloride 109.9 mmol/L (98-107) H 02/22/17 04:47 Carbon Dioxide 22 mmol/L (22-30) 02/22/17 04:47 Anion Gap 17 mmol/L 02/22/17 04:47 BUN 4 mg/dL (9-20) L 02/22/17 04:47 Creatinine 0.5 mg/dL (0.8-1.5) L 02/22/17 04:47 Estimated GFR > 60 ml/min 02/22/17 04:47 BUN/Creatinine Ratio 8.00 % 02/22/17 04:47 Glucose 95 mg/dL (75-100) 02/22/17 04:47 Calcium 8.1 mg/dL (8.4-10.2) L 02/22/17 04:47 Total Bilirubin 0.6 mg/dL (0.1-1.2) 02/22/17 04:47 AST 12 units/L (5-40) 02/22/17 04:47 ALT 11 units/L (7-56) 02/22/17 04:47 Alkaline Phosphatase 67 units/L (35-129) 02/22/17 04:47 Total Protein 5.2 g/dL (6.3-8.2) L 02/22/17 04:47 Albumin 3.1 g/dL (3.9-5) L 02/22/17 04:47 Albumin/Globulin Ratio 1.5 % 02/22/17 04:47 Urine Color Yellow (Yellow) 02/21/17 12:00 Urine Turbidity Clear (Clear) 02/21/17 12:00 Urine pH 5.0 (5.0-7.0) 02/21/17 12:00 Ur Specific [place] 1.020 (1.003-1.030) 02/21/17 12:00 Urine Protein <15 mg/dl mg/dL (Negative) 02/21/17 12:00 Urine Glucose (UA) Neg mg/dL (Negative) 02/21/17 12:00 Urine Ketones Neg mg/dL (Negative) 02/21/17 12:00 Urine Blood Neg (Negative) 02/21/17 12:00 Urine Nitrite Neg (Negative) 02/21/17 12:00 Urine Bilirubin Neg (Negative) 02/21/17 12:00 Urine Urobilinogen < 2.0 mg/dL (<2.0) 02/21/17 12:00 Ur Leukocyte Esterase Neg (Negative) 02/21/17 12:00 Urine WBC (Auto) 4.0 /HPF (0.0-6.0) 02/21/17 12:00 Urine RBC (Auto) 4.0 /HPF (0.0-6.0) 02/21/17 12:00 U Epithel Cells (Auto) < 1.0 /HPF (0-13.0) 02/21/17 12:00 Urine Mucus Few /HPF 02/21/17 12:00
[2017-02-23] MEDS: LOVENOX SUB-Q SCH (10:32)
[2017-02-23] MEDS: NEURONTIN PO SCH ×2 (10:32→22:18)
[2017-02-23] MEDS: DELTASONE PO SCH (10:36)
--- NOTE | 2017-02-23 14:04 | Event Note ---
Date: 02/23/17 F/U IPR, s/p fall. Pt seen this AM in room with . In further discussion and review of old records, pt with prior work-up at [place] in January 2017 for similar symptoms. Pt has history of multiple falls and was seen by Neurosurgery during prior visit; recommended for surgery, however, declined. Instead pain treated with oral pain meds and steroids. Pt and report he declined home health after limited participation with therapies in-house and progressed well at home. Pt is pending F/u by PT on today for progress and ability to be able to participate in 3 hours of therapy if admitted to IRU; pt/ agree to SNF placement if not able to tolerate aggressive therapies. Case has been discussed with case management on this AM.
[2017-02-24] MEDS: DILAUDID PO PRN ×3 (00:13→12:47)
[2017-02-24] MEDS: ROXICODONE PO PRN ×3 (02:26→11:00)
[2017-02-24] MEDS: LOVENOX SUB-Q SCH (09:03)
[2017-02-24] MEDS: NEURONTIN PO SCH (09:03)
[2017-02-24] MEDS: DELTASONE PO SCH (09:03)
[2017-02-24 11:05] VITALS: BP 128/87
--- NOTE | 2017-02-24 11:07 | Progress Note ---
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 He is on Dilaudid 2mg po q8hrs and Oxycodone 30mg po q4hrs, which are given to him by Dr. Andrade in [place] (I told him i would not be giving him any narcotics for home and he should get all narcotics from one doctor, Dr. Andrade). He presented with report of fall from 3 feet ladder. Which is interesting because he has history of falls, so why would he be on a ladder in the first place. Also , back in 2015 he had small bilateral PE on CTA chest but he denies knowing about any PE/blood clots and he has not been on anticoagulation. I Reviewed all imaging. No acute fracture. at bedside asking for that patient's narcotics be given correctly. -Fall: counseling done -Spinal spondylosis, physical therapy -Difficulty ambulating -Hypokalemia, replace -CPS, adjusted narcotics -Hypernatremia, stop ivf -Disposition: either home with pt or placement, await Physical therapist recommendation==>acute rehab d/w Dr. Singh. Pt not participating enough with PT. Steroids ordered and is helping some. Plan is PT and Rehab to re-evaluate today. History Interval history: Patient seen and examined. Follow up on inability to walk and low back pain which is still present. Overnight uneventful. No cp, sob, n/v or severe headaches. Imaging, old records, testing, labs, nursing notes reviewed. Plan discussed with patient. Hospitalist Physical - Physical exam Narrative exam: GEN: WDWN, NAD, AWAKE, ALERT, ORIENTATED 3 HEENT: NCAT, PERRL, EOMI, OP CLEAR NECK: SUPPLE, NO THYROMEGALY, NO JVD, NO LAD CVS: RRR, NORMAL S1S2 LUNGS/CHEST: CTA B, NORMAL CHEST EXPANSION B, GOOD AIR ENTRY B ABD: SOFT NTND, GBS, NO REBOUND OR GUARDING EXT/SKIN: NO SIGNIFICANT EDEMA OR RASH MSK: FROM X 4 EXTREMITIES NEURO: CN 2-12 GROSSLY INTACT, NO new FOCAL DEFICITS PSY: CALM - Constitutional Vitals: Temp Pulse Resp BP Pulse Ox 98.0 F 67 18 128/87 99 02/24/17 07:00 02/24/17 07:00 02/24/17 07:00 02/24/17 07:00 02/24/17 07:00 General appearance: Present: no acute distress, other (sitting up in bed; present) Results - Labs CBC & Chem 7: 02/21/17 13:55 02/22/17 04:47 Labs: Laboratory Last Values WBC 6.6 K/mm3 (4.5-11.0) 02/21/17 13:55 RBC 4.14 M/mm3 (3.65-5.03) 02/21/17 13:55 Hgb 12.2 gm/dl (11.8-15.2) 02/21/17 13:55 Hct 36.6 % (35.5-45.6) 02/21/17 13:55 MCV 89 fl (84-94) 02/21/17 13:55 MCH 29 pg (28-32) 02/21/17 13:55 MCHC 33 % (32-34) 02/21/17 13:55 RDW 17.1 % (13.2-15.2) H 02/21/17 13:55 Plt Count 236 K/mm3 (140-440) 02/21/17 13:55 Lymph % (Auto) 29.4 % (13.4-35.0) 02/21/17 13:55 [place] % (Auto) 9.7 % (0.0-7.3) H 02/21/17 13:55 Eos % (Auto) 1.4 % (0.0-4.3) 02/21/17 13:55 Baso % (Auto) 0.5 % (0.0-1.8) 02/21/17 13:55 Lymph # 1.9 K/mm3 (1.2-5.4) 02/21/17 13:55 [place] # 0.6 K/mm3 (0.0-0.8) 02/21/17 13:55 Eos # 0.1 K/mm3 (0.0-0.4) 02/21/17 13:55 Baso # 0.0 K/mm3 (0.0-0.1) 02/21/17 13:55 Seg Neutrophils % 59.0 % (40.0-70.0) 02/21/17 13:55 Seg Neutrophils # 3.9 K/mm3 (1.8-7.7) 02/21/17 13:55 Sodium 146 mmol/L (137-145) H D 02/22/17 04:47 Potassium 3.0 mmol/L (3.6-5.0) L 02/22/17 04:47 Chloride 109.9 mmol/L (98-107) H 02/22/17 04:47 Carbon Dioxide 22 mmol/L (22-30) 02/22/17 04:47 Anion Gap 17 mmol/L 02/22/17 04:47 BUN 4 mg/dL (9-20) L 02/22/17 04:47 Creatinine 0.5 mg/dL (0.8-1.5) L 02/22/17 04:47 Estimated GFR > 60 ml/min 02/22/17 04:47 BUN/Creatinine Ratio 8.00 % 02/22/17 04:47 Glucose 95 mg/dL (75-100) 02/22/17 04:47 Calcium 8.1 mg/dL (8.4-10.2) L 02/22/17 04:47 Total Bilirubin 0.6 mg/dL (0.1-1.2) 02/22/17 04:47 AST 12 units/L (5-40) 02/22/17 04:47 ALT 11 units/L (7-56) 02/22/17 04:47 Alkaline Phosphatase 67 units/L (35-129) 02/22/17 04:47 Total Protein 5.2 g/dL (6.3-8.2) L 02/22/17 04:47 Albumin 3.1 g/dL (3.9-5) L 02/22/17 04:47 Albumin/Globulin Ratio 1.5 % 02/22/17 04:47 Urine Color Yellow (Yellow) 02/21/17 12:00 Urine Turbidity Clear (Clear) 02/21/17 12:00 Urine pH 5.0 (5.0-7.0) 02/21/17 12:00 Ur Specific [place] 1.020 (1.003-1.030) 02/21/17 12:00 Urine Protein <15 mg/dl mg/dL (Negative) 02/21/17 12:00 Urine Glucose (UA) Neg mg/dL (Negative) 02/21/17 12:00 Urine Ketones Neg mg/dL (Negative) 02/21/17 12:00 Urine Blood Neg (Negative) 02/21/17 12:00 Urine Nitrite Neg (Negative) 02/21/17 12:00 Urine Bilirubin Neg (Negative) 02/21/17 12:00 Urine Urobilinogen < 2.0 mg/dL (<2.0) 02/21/17 12:00 Ur Leukocyte Esterase Neg (Negative) 02/21/17 12:00 Urine WBC (Auto) 4.0 /HPF (0.0-6.0) 02/21/17 12:00 Urine RBC (Auto) 4.0 /HPF (0.0-6.0) 02/21/17 12:00 U Epithel Cells (Auto) < 1.0 /HPF (0-13.0) 02/21/17 12:00 Urine Mucus Few /HPF 02/21/17 12:00
== END 2017-02-24 13:42 | DRG 552 ==
LOC: ED 11:36 → 3A 20:44
PROVIDERS: ADMIT Internal Medicine; ATTEND Internal Medicine
DX: M54.16 Radiculopathy, lumbar region (principal); M47.16 Other spondylosis with myelopathy, lumbar region; E87.0 Hyperosmolality and hypernatremia; E78.5 Hyperlipidemia, unspecified; R26.89 Other abnormalities of gait and mobility; G89.4 Chronic pain syndrome; F41.1 Generalized anxiety disorder; W01.0XXA Fall on same level from slipping, tripping and stumbling without subsequent striking against object, initial encounter; E87.6 Hypokalemia; Z82.49 Family history of ischemic heart disease and other diseases of the circulatory system; Z83.3 Family history of diabetes mellitus; Z79.899 Other long term (current) drug therapy; Y93.89 Activity, other specified; Y92.098 Other place in other non-institutional residence as the place of occurrence of the external cause; Y99.8 Other external cause status
CPT/HCPCS: 36415; 70450; 72072; 72100; 72125; 72128; 72131; 72158; 80053; 81001; 85025; 96361; 96374; 96375; A9577; G8978-GP; G8979-GP; J1170; J1650; J2060; J2270; J2405; J7030; J7042; J7512

== ENCOUNTER 2018-01-08 19:59 | Inpatient (IN) | payer MEDICARE ==
[2018-01-08] MEDS ORDERED: ASPIRIN PO ONE (20:28)
[2018-01-08 20:53] LABS: Basophils % (Auto) 0.4 % (0.0-1.8); Eosinophils # (Auto) 0.1 K/mm3 (0.0-0.4); Eosinophils % (Auto) 0.6 % (0.0-4.3); Hematocrit 37.4 % (35.5-45.6); Hemoglobin 12.8 gm/dl (11.8-15.2); Lymphocytes # (Auto) 1.3 K/mm3 (1.2-5.4); Lymphocytes % (Auto) 16.2 % (13.4-35.0); Mean Corpuscular HGB Conc 34 % (32-34); Mean Corpuscular Hemoglobin 29 pg (28-32); Mean Corpuscular Volume 86 fl (84-94); Monocytes # (Auto) 0.7 K/mm3 (0.0-0.8); Monocytes % (Auto) 9.1 % (0.0-7.3); Platelet Count 267 K/mm3 (140-440); Red Blood Count 4.34 M/mm3 (3.65-5.03); Red Cell Distribution Width 15.7 % (13.2-15.2)
[2018-01-08 21:04] LABS: BUN/Creatinine Ratio 10; Blood Urea Nitrogen 6 mg/dL (9-20); Calcium 8.7 mg/dL (8.4-10.2); Hemolysis Index 6
--- NOTE | 2018-01-08 21:51 | XRay Report ---
FINAL REPORT EXAM: XR CHEST ROUTINE 2V HISTORY: Shortness of Breath COMPARISON: None available. FINDINGS:: Frontal and lateral views of the chest obtained. Cardiac silhouette is within normal limits. Shallow inspiration. No focal consolidation or effusion. No pneumothorax. Visualized bony thorax is grossly intact. IMPRESSION:: No acute findings.
[2018-01-08] MEDS ORDERED: NITROSTAT SL ONE (22:55)
--- NOTE | 2018-01-08 22:55 | Emergency Department Report ---
ED Chest Pain HPI - General Chief Complaint: Chest Pain Stated Complaint: CHEST PAIN,ESAU Time Seen by Provider: 01/08/18 22:45 Source: patient Mode of arrival: Ambulatory Limitations: No Limitations - History of Present Illness Initial Comments: Patient is 67 years old male, presented to the ER with left-sided chest pain, tightness radiated to the left upper extremity. Pain associated with shortness of breath. Patient denied any cough or fever recently. MD Complaint: chest pain -: hour(s) Onset: during rest Pain Location: left chest Pain Radiation: LUE Severity: moderate Severity scale (0 -10): 4 Quality: tightness Consistency: constant - Related Data Previous Rx's Medication Instructions Recorded Last Taken Type Cyclobenzaprine [Flexeril 10 MG 10 mg PO TID PRN #20 tablet 04/08/17 Unknown Rx TAB] Gabapentin [Neurontin] 400 mg PO BID #60 capsule 04/08/17 Unknown Rx Oxycodone HCl [Roxicodone TAB] 15 mg PO Q6H PRN #30 tablet 04/08/17 Unknown Rx clonazePAM [Klonopin] 1 mg PO TID #20 tablet 04/08/17 Unknown Rx methylPREDNISolone [Medrol Dose 4 mg PO DAILY #1 pack 04/08/17 Unknown Rx Howard] Allergies Allergy/AdvReac Type Severity Reaction Status Date / Time ketorolac tromethamine Allergy Rash Verified 02/21/17 11:48 [From Toradol] Heart Score - HEART Score History: Moderately suspicious EKG: Non-specific Age: > 65 Risk factors: 1-2 risk factors Troponin: < normal limit HEART Score: 5 - Critical Actions Critical Actions: 4-6 pts:12-16.6% risk of adverse cardiac event. Should be admitted ED Review of Systems ROS: Stated complaint: CHEST PAIN,ESAU Other details as noted in HPI Comment: All other systems reviewed and negative Constitutional: denies: chills, fever Respiratory: denies: cough, orthopnea, shortness of breath, SOB with exertion, SOB at rest, stridor, wheezing Cardiovascular: chest pain. denies: palpitations, dyspnea on exertion Gastrointestinal: denies: abdominal pain, nausea, vomiting, diarrhea, constipation, hematemesis, hematochezia Musculoskeletal: denies: back pain Skin: denies: rash Neurological: denies: headache, weakness, numbness, paresthesias, confusion, abnormal gait, vertigo ED Past Medical Hx - Past Medical History Previous Medical History?: Yes Hx Heart Attack/AMI: No Hx Deep Vein Thrombosis: (Unknown) Hx Arthritis: Yes (Neck, lower back) Additional medical history: Subarachnoid cyst T1-T5. Laminectomy L4-5 - Surgical History Hx Pacemaker: No Hx Internal Defibrillator: No Hx Cholecystectomy: Yes Additional Surgical History: laminectomy L4-L5 2003. right inguinal Hernia Repair - Social History Smoking Status: Never Smoker - Medications Home Medications: Home Medications Medication Instructions Recorded Confirmed Last Taken Type Cyclobenzaprine [Flexeril 10 MG 10 mg PO TID PRN #20 tablet 04/08/17 Unknown Rx TAB] Gabapentin [Neurontin] 400 mg PO BID #60 capsule 04/08/17 Unknown Rx Oxycodone HCl [Roxicodone TAB] 15 mg PO Q6H PRN #30 tablet 04/08/17 Unknown Rx clonazePAM [Klonopin] 1 mg PO TID #20 tablet 04/08/17 Unknown Rx methylPREDNISolone [Medrol Dose 4 mg PO DAILY #1 pack 04/08/17 Unknown Rx Howard] ED Physical Exam - General Limitations: No Limitations General appearance: alert, in no apparent distress - Head Head exam: Present: atraumatic, normocephalic, normal inspection - Eye Eye exam: Present: normal appearance, PERRL - ENT ENT exam: Present: normal exam, normal orophraynx, mucous membranes moist - Neck Neck exam: Present: normal inspection, full ROM. Absent: tenderness, meningismus - Respiratory Respiratory exam: Present: normal lung sounds bilaterally. Absent: respiratory distress, wheezes, rales, rhonchi, stridor - Cardiovascular Cardiovascular Exam: Present: regular rate, normal rhythm, normal heart sounds - GI/Abdominal GI/Abdominal exam: Present: soft, normal bowel sounds. Absent: distended, tenderness, guarding, rebound, rigid, diminished bowel sounds, organomegaly, mass, bruit, pulsatile mass, hernia - Extremities Exam Extremities exam: Present: normal inspection, full ROM, normal capillary refill - Back Exam Back exam: Present: normal inspection, full ROM. Absent: CVA tenderness (R), CVA tenderness (L), muscle spasm, paraspinal tenderness, vertebral tenderness - Neurological Exam Neurological exam: Present: alert, oriented X3, CN II-XII intact, normal gait - Skin Skin exam: Present: warm, intact, normal color. Absent: cyanosis ED Course Vital Signs 01/08/18 01/08/18 20:11 20:20 Temperature 98.2 F 98.1 F Pulse Rate 103 H 107 H Respiratory 18 20 Rate Blood Pressure 117/73 130/80 O2 Sat by Pulse 98 99 Oximetry ED Medical Decision Making - Lab Data Result diagrams: 01/08/18 20:32 01/08/18 20:32 - EKG Data -: EKG Interpreted by Nh EKG shows normal: sinus rhythm Rate: normal - EKG Data Interpretation: no acute changes - Radiology Data Radiology results: report reviewed Referring Physician: ED POOJA Patient Name: CHUCK VARGAS Date of : 1950 Sex: Male Report Date: 2018-01-08 Report Status: Finalized Findings [facility] [address] [place] [address] XRay Report Signed Patient: CHUCK VARGAS MR#: [id number] : 1950 Acct:[id number] Age/Sex: 67 / M ADM Date: 01/08/18 Loc: ED Attending Dr: Ordering Physician: AVELINA PATTON MD Date of Service: 01/08/18 Procedure(s): XR chest routine 2V Accession Number(s): [id number] cc: ED MD POOJA Fluoro Time In Minutes: FINAL REPORT EXAM: XR CHEST ROUTINE 2V HISTORY: Shortness of Breath COMPARISON: None available. FINDINGS:: Frontal and lateral views of the chest obtained. Cardiac silhouette is within normal limits. Shallow inspiration. No focal consolidation or effusion. No pneumothorax. Visualized bony thorax is grossly intact. IMPRESSION:: No acute findings. Transcribed By: LMA Dictated By: LOLA RIVERA MD Electronically Authenticated By: LOLA RIVERA MD Signed Date/Time: 01/08/181745 DD/ 45 TD/TT: 01/08/181745 - Medical Decision Making Discussed with Dr. Wilkes, I presented the patient to him, he agreed to admit the patient to his service. Critical care attestation.: If time is entered above; I have spent that time in minutes in the direct care of this critically ill patient, excluding procedure time. ED Disposition Clinical Impression: Chest pain Disposition: DC-09 OP ADMIT IP TO THIS HOSP Is pt being admited?: Yes Condition: Stable Instructions: Chest Pain (ED) Referrals: PRIMARY CARE, [Primary Care Provider] - 3-5 Days
--- NOTE | 2018-01-08 23:11 | History and Physical Report ---
History of Present Illness Date of examination: 01/08/18 Chief complaint: Chest tightness History of present illness: 67-year-old male presented to the emergency department complaining of chest tightness at started this afternoon. Patient was complaining chest tightness, left-sided substernal crushing pain, 9 out of 10 in intensity, associated with tingling of the left arm, diaphoresis, pain is getting worse with exertion, no alleviating factors identified. Patient is also complaining of bilateral leg swelling and orthopnea that started this morning. Patient said he has no significant medical history except musculoskeletal pain, has been taking pain medication and had multiple surgeries. Patient's concerned that because of his family history of congestive heart failure, diabetes and stroke. REVIEW OF SYSTEMS: GENERAL: no weight change, no fatigue, no fever HEAD: no head ache EYES: no blurry vision, no acute visual loss EARS: no hearing loss, no discharge, no earache NOSE: no stuffiness, no sneezing, no discharge MOUTH, THROAT AND NECK: no bleeding gums, no sore throat, no swollen neck CARDIAC: As stated in the HPI. RESPIRATORY: + shortness of breath, no wheeze, no cough, no sputum, no hemoptysis, no asthma GI: no decreased appetite, no nausea, no vomiting, no dysphagia, no diarrhea, no constipation, no abdominal pain URINARY: no change in frequency, no urgency, no polyuria, no hematuria, no incontinence NEUROLOGIC: no loss of sensation/numbness, no tingling, no tremors, no weakness/ paralysis HEMATOLOGIC: no anemia, no easy bruising SKIN: no rashes ENDOCRINE: no heat/cold intolerance, no polyuria, no polydipsia, no thyroid problems, no diabetes PSYCHIATRIC: no anxiety, no depression, no suicidal ideations Past History Past Medical History: other (back painback pain) Past Surgical History: cholecystectomy, hernia repair, Other (laminectomy and knee surgery) Social history: full code. denies: smoking, alcohol abuse, prescription drug abuse, IV drug use Family history: stroke (mother), other (diabetes and heart failure run in the family) Medications and Allergies Allergies Allergy/AdvReac Type Severity Reaction Status Date / Time ketorolac tromethamine Allergy Rash Verified 02/21/17 11:48 [From Toradol] Home Medications Medication Instructions Recorded Confirmed Last Taken Type Cyclobenzaprine [Flexeril 10 MG 10 mg PO TID PRN #20 tablet 04/08/17 Unknown Rx TAB] Gabapentin [Neurontin] 400 mg PO BID #60 capsule 04/08/17 Unknown Rx Oxycodone HCl [Roxicodone TAB] 15 mg PO Q6H PRN #30 tablet 04/08/17 Unknown Rx clonazePAM [Klonopin] 1 mg PO TID #20 tablet 04/08/17 Unknown Rx methylPREDNISolone [Medrol Dose 4 mg PO DAILY #1 pack 04/08/17 Unknown Rx Howard] Exam - Physical Exam Narrative exam: Not in cardiopulmonary distress. The patient appeared well nourished and normally developed. Vital signs as documented. Head exam is unremarkable. No scleral icterus . Neck is without jugular venous distension, thyromegaly, or carotid bruits. Lungs are clear to auscultation. Cardiac exam reveals regular rate and Rhythm. First and second heart sounds normal. No murmurs, rubs or gallops. Abdominal exam reveals normal bowel sounds, no masses, no organomegaly and no aortic enlargement. Extremities +2 pedal and pretibial edema. HI LIFT OPERATOR: Alert and oriented 3. No focal weakness. - Constitutional Vitals: Temp Pulse Resp BP Pulse Ox 98.1 F 107 H 20 130/80 99 01/08/18 20:20 01/08/18 20:20 01/08/18 20:20 01/08/18 20:20 01/08/18 20:20 Results - Labs CBC & Chem 7: 01/08/18 20:32 01/08/18 20:32 Labs: Laboratory Last Values WBC 7.9 K/mm3 (4.5-11.0) 01/08/18 20:32 RBC 4.34 M/mm3 (3.65-5.03) 01/08/18 20:32 Hgb 12.8 gm/dl (11.8-15.2) 01/08/18 20:32 Hct 37.4 % (35.5-45.6) 01/08/18 20:32 MCV 86 fl (84-94) 01/08/18 20:32 MCH 29 pg (28-32) 01/08/18 20:32 MCHC 34 % (32-34) 01/08/18 20:32 RDW 15.7 % (13.2-15.2) H 01/08/18 20:32 Plt Count 267 K/mm3 (140-440) 01/08/18 20:32 Lymph % (Auto) 16.2 % (13.4-35.0) 01/08/18 20:32 [place] % (Auto) 9.1 % (0.0-7.3) H 01/08/18 20:32 Eos % (Auto) 0.6 % (0.0-4.3) 01/08/18 20:32 Baso % (Auto) 0.4 % (0.0-1.8) 01/08/18 20:32 Lymph # 1.3 K/mm3 (1.2-5.4) 01/08/18 20:32 [place] # 0.7 K/mm3 (0.0-0.8) 01/08/18 20: Eos # 0.1 K/mm3 (0.0-0.4) 01/08/18 20: Baso # 0.0 K/mm3 (0.0-0.1) 01/08/18 20:32 Seg Neutrophils % 73.7 % (40.0-70.0) H 01/08/18 20:32 Seg Neutrophils # 5.9 K/mm3 (1.8-7.7) 01/08/18 20:32 Sodium 135 mmol/L (137-145) L 01/08/18 20:32 Potassium 3.7 mmol/L (3.6-5.0) 01/08/18 20:32 Chloride 95.3 mmol/L (98-107) L 01/08/18 20:32 Carbon Dioxide 25 mmol/L (22-30) 01/08/18 20:32 Anion Gap 18 mmol/L 01/08/18 20:32 BUN 6 mg/dL (9-20) L 01/08/18 20:32 Creatinine 0.6 mg/dL (0.8-1.5) L 01/08/18 20:32 Estimated GFR > 60 ml/min 01/08/18 20:32 BUN/Creatinine Ratio 10 % 01/08/18 20:32 Glucose 98 mg/dL (75-100) 01/08/18 20:32 Calcium 8.7 mg/dL (8.4-10.2) 01/08/18 20:32 Troponin T < 0.010 ng/mL (0.00-0.029) 01/08/18 20:32 NT-Pro-B Natriuret Pep 75.16 pg/mL (0-900) 01/08/18 20:32 Assessment and Plan Assessment and plan: Acute unspecified CHF - Patient is on IV Lasix, lisinopril, cardiology consult, strict input and output, continuous cardiac monitoring, Echo in the morning Chest pain - EKG normal sinus rhythm, troponin negative, will have stress test tomorrow - Nothing by mouth after midnight Musculoskeletal pain - Continue home medications DVT prophylaxis - Lovenox Disposition - Admit to telemetry floor Advance Directives: Yes VTE prophylaxis?: Chemical Plan of care discussed with patient/family: Yes
[2018-01-09] MEDS ORDERED: NITROSTAT SL ONE (00:42)
[2018-01-09] MEDS ORDERED: LASIX ONE (00:43)
[2018-01-09] MEDS: LASIX IV SCH ×2 (00:54→21:26)
[2018-01-09] MEDS ORDERED: MORPHINE ONE (01:45)
[2018-01-09] MEDS: MORPHINE IV PRN ×3 (01:48→13:01)
[2018-01-09] MEDS: ROXICODONE PO PRN ×5 (03:04→20:22)
[2018-01-09 06:15] LABS: BUN/Creatinine Ratio 7; Blood Urea Nitrogen 4 mg/dL (9-20); Calcium 8.5 mg/dL (8.4-10.2); Hemolysis Index 3
[2018-01-09] MEDS ORDERED: LEXISCAN IV ONE ×2 (08:01→11:31)
--- NOTE | 2018-01-09 09:17 | Progress Note ---
Subjective Date of service: 01/09/18 Interval history: CONSULT DICTATED Objective Vital Signs Temp Pulse Pulse Resp BP BP Pulse Ox 01/09/18 08:03 92 H 93 01/09/18 08:02 98.7 F 88 18 117/62 94 01/09/18 05:44 98 F 78 20 119/65 98 01/09/18 04:26 79 119/65 97 01/09/18 03:25 92 H 01/09/18 02:57 92 H 120/65 01/09/18 02:39 18 99 01/09/18 02:15 89 8 L 120/65 99 01/09/18 02:00 90 8 L 120/65 100 01/09/18 01:48 18 01/09/18 01:46 98 H 10 L 126/68 99 01/09/18 01:30 100 H 10 L 126/68 98 01/09/18 01:16 99 H 12 126/68 97 01/09/18 01:00 88 13 126/68 98 01/09/18 00:50 92 H 119/64 01/09/18 00:46 93 H 10 L 119/64 99 01/09/18 00:30 76 7 L 119/64 98 01/09/18 00:16 77 8 L 119/64 99 01/09/18 00:00 76 7 L 119/64 99 01/08/18 23:50 79 10 L 01/08/18 20:20 98.1 F 107 H 20 130/80 99 01/08/18 20:11 98.2 F 103 H 18 117/73 98 - Labs and Meds CBC 01/08/18 Range/Units 20:32 WBC 7.9 (4.5-11.0) K/mm3 RBC 4.34 (3.65-5.03) M/mm3 Hgb 12.8 (11.8-15.2) gm/dl Hct 37.4 (35.5-45.6) % Plt Count 267 (140-440) K/mm3 Lymph # 1.3 (1.2-5.4) K/mm3 [place] # 0.7 (0.0-0.8) K/mm3 Eos # 0.1 (0.0-0.4) K/mm3 Baso # 0.0 (0.0-0.1) K/mm3 Comprehensive Metabolic Panel 01/08/18 01/09/18 Range/Units 20:32 05:25 Sodium 135 L 143 D (137-145) mmol/L Potassium 3.7 3.4 L (3.6-5.0) mmol/L Chloride 95.3 L 96.2 L (98-107) mmol/L Carbon Dioxide 25 29 (22-30) mmol/L BUN 6 L 4 L (9-20) mg/dL Creatinine 0.6 L 0.6 L (0.8-1.5) mg/dL Glucose 98 91 (75-100) mg/dL Calcium 8.7 8.5 (8.4-10.2) mg/dL
[2018-01-09] MEDS ORDERED: K-DUR PO ONE ×2 (09:30→14:00)
[2018-01-09] MEDS ORDERED: ROXICODONE ONE (10:41)
[2018-01-09] MEDS: ZESTRIL PO SCH (13:59)
[2018-01-09] MEDS: NEURONTIN PO SCH ×2 (13:59→21:25)
[2018-01-09] MEDS: LOVENOX SUB-Q SCH (14:00)
--- NOTE | 2018-01-09 14:06 | Consultation ---
HISTORY OF PRESENT ILLNESS: The patient was admitted with a chief complaint of chest pain. He describes prolonged left anterior chest tightness with associated left arm discomfort and this was associated with some diaphoresis, shortness of breath and palpitations. It seemed to get worse with exertion. He is normally moderately active and he does not have any exertional symptoms, although there are strokes in the family, there has been no coronary artery disease, arrhythmias, heart failure, strokes, syncope or claudication. He has had ankle edema bilaterally for about 2 days. He did not describe any GI disorders or indigestion. He states that there was a pleuritic component to the chest pain, but there was no tender aspect. He has had chronic lower back pain and surgeries. He has had mid back pain attributed to a T1 cyst and surgery is being contemplated. He did not describe any clearcut cervical spine disorders. He describes a low carb diet. He has not had any major change in his weight. He is changing primary care doctors. Did not describe any sleep disorders. SOCIAL HISTORY: Smoking: None. Alcohol: No heavy use. MEDICATIONS: See the nurse's list. ALLERGIES: KETOROLAC. FAMILY HISTORY: Remarkable for strokes, diabetes, heart failure. PAST SURGICAL HISTORY: Cholecystectomy, hernia repair, laminectomy in the lower spine, knee surgery. PHYSICAL EXAMINATION: GENERAL: Well-developed, moderately obese, no acute distress. Alert, oriented and cooperative. Mental status normal. EYES, NOSE, AND THROAT: Unremarkable. NECK: Reveals no JVD or bruits. Neck is supple, no masses. Carotid upstrokes are diminished. LUNGS: Clear. No labored respirations. HEART: Regular rhythm. Heart sounds somewhat distant. No murmurs or rubs noted. Possible soft S4. ABDOMEN: Soft, nontender, no masses. EXTREMITIES: No cyanosis, clubbing, edema. There is trace pedal edema. Peripheral pulses are intact. NEUROLOGIC: Symmetrical. SKIN: Clear. EKG, no acute changes. Troponins normal. IMPRESSION: 1. Prolonged chest pain in an older gentleman who could possibly have underlying coronary artery disease. 2. Chronic pain. 3. Obesity. 4. Mild ankle edema: Suspect venous insufficiency. 5. Abnormal carotid exam. PLAN: Proceed with thallium study today. Consider GI workup if the thallium is negative. We will recommend a carotid ultrasound. Thank you for this consultation. [facility]# [id number] ALISA/NTS
--- NOTE | 2018-01-09 15:10 | Discharge Summary ---
Providers - Providers Date of Admission: 01/08/18 22:58 Date of discharge: 01/09/18 Attending physician: POLA LLOYD 01/08/18 23:30 Consult to Physician [CONS] Routine Consulting Provider: KATIE MTZ Reason For Exam: CHF Place consult to:: Dr. Mtz Notified:: Samantha VARELA Phone number called:: Was contact made?: Yes If yes, spoke with:: [facility] Time called:: 08:12 Primary care physician: SHEAR HELPER Hospitalization Condition: Stable Hospital course: Chest pain - EKG normal sinus rhythm, troponin negative, negative stress test - likely from GERD Musculoskeletal pain - Continue home medications DVT prophylaxis - Lovenox Disposition: DC- TO HOME OR SELFCARE Time spent for discharge: 32 minutes Exam - Constitutional Vitals: Temp Pulse Resp BP Pulse Ox 98.7 F 91 H 18 140/62 93 01/09/18 08:02 01/09/18 13:59 01/09/18 13:01 01/09/18 13:59 01/09/18 08:03 Plan Activity: advance as tolerated Weight Bearing Status: Weight Bear as Tolerated Diet: low fat, low cholesterol, low salt Follow up with: PRIMARY CARE, [Primary Care Provider] - 3-5 Days Prescriptions: Lisinopril [Zestril TAB] 2.5 mg PO QDAY #30 tablet Pantoprazole [Protonix] 40 mg PO QDAY #30 tablet
[2018-01-09] MEDS: FLEXERIL PO PRN (21:25)
[2018-01-10] MEDS: ROXICODONE PO PRN ×6 (00:21→21:26)
--- NOTE | 2018-01-10 07:19 | Progress Note ---
Assessment and Plan Chest pain - EKG normal sinus rhythm, troponin negative, negative stress test - likely from GERD Musculoskeletal pain - Continue home medications B/L LE weakness - will do PT eval, CT head, lumber spine DVT prophylaxis - Lovenox Subjective Date of service: 01/09/18 Interval history: Pt seen and examined c/o b/l LE weakness and inability to put wt, states symptom developed since this morning had stress test today, was normal Objective - Constitutional Vitals: Vital Signs - 12hr 01/09/18 01/09/18 01/09/18 20:07 20:22 20:45 Temperature 97.9 F 98.7 F Pulse Rate 89 84 Respiratory 20 20 18 Rate Blood Pressure 124/77 125/66 O2 Sat by Pulse 93 96 Oximetry 01/09/18 01/10/18 01/10/18 22:00 06:07 06:08 Temperature 98.3 F Pulse Rate 91 H 79 78 Respiratory 20 18 Rate Blood Pressure 110/63 O2 Sat by Pulse 95 95 Oximetry General appearance: Present: no acute distress, well-nourished - EENT Eyes: PERRL, EOM intact ENT: hearing intact, clear oral mucosa Ears: bilateral: normal - Neck Neck: supple, normal ROM - Respiratory Respiratory effort: normal Respiratory: bilateral: CTA - Cardiovascular Rhythm: regular Heart Sounds: Present: S1 & S2. Absent: gallop, rub Extremities: pulses intact, No edema, normal color, Full ROM - Gastrointestinal General gastrointestinal: Present: soft, non-tender, non-distended, normal bowel sounds - Integumentary Integumentary: clear, warm, dry - Musculoskeletal Musculoskeletal: other (le weakness) - Neurologic Neurologic: moves all extremities - Psychiatric Psychiatric: memory intact, appropriate mood/affect, intact judgment & insight - Labs CBC & Chem 7: 01/08/18 20:32 01/10/18 08:02 - Imaging and cardiology EKG: report reviewed
[2018-01-10] MEDS: LOVENOX SUB-Q SCH (09:05)
[2018-01-10] MEDS: ZESTRIL PO SCH (09:05)
[2018-01-10] MEDS: NEURONTIN PO SCH ×2 (09:06→21:26)
[2018-01-10] MEDS: LASIX IV SCH (09:06)
[2018-01-10] MEDS: LASIX PO SCH ×2 (11:04→21:27)
--- NOTE | 2018-01-10 11:41 | Progress Note ---
Assessment and Plan Chest pain - EKG normal sinus rhythm, troponin negative, negative stress test - refused 2d echo - likely from GERD Chronic pain - narcotic dependent - spoke at [facility] pharmacist, he has been getting refill for roxicodone from different hospitals and prescribers - patient states he is not able to get pain medications from pain management clinic since August - he refilled his last prescription from [facility] on 01/04 and prescription was given from [place] - will get medical records from [place] B/L LE weakness - s/p PT eval recommended ANTONIO, - CT head no acute finding, CT lumber spine showed degenerative changes - CM notified, per CM he used up all his medicare days for rehab, patient not willing to go home with HH hypokalemia - replaced DVT prophylaxis - Lovenox Brief History: 67 y/o male with h/o chronic back pain, chronic narcotic dependance presented with chest pain and inability to ambulate due to LE weakness Physical exam: General appearance: Present: no acute distress, well-nourished - EENT Eyes: PERRL, EOM intact ENT: hearing intact, clear oral mucosa Ears: bilateral: normal - Neck Neck: supple, normal ROM - Respiratory Respiratory effort: normal Respiratory: bilateral: CTA - Cardiovascular Rhythm: regular Heart Sounds: Present: S1 & S2. Absent: gallop, rub Extremities: pulses intact, No edema, normal color, Full ROM - Gastrointestinal General gastrointestinal: Present: soft, non-tender, non-distended, normal bowel sounds - Integumentary Integumentary: clear, warm, dry - Musculoskeletal Musculoskeletal: other (le weakness) - Neurologic Neurologic: moves all extremities - Psychiatric Psychiatric: memory intact, appropriate mood/affect, intact judgment & insight Subjective Date of service: 01/10/18 Interval history: Pt seen and examined c/o b/l LE weakness and inability to put wt, refused 2d echo this am PT recommended ANTONIO Objective - Constitutional Vitals: Vital Signs - 12hr 01/10/18 01/10/18 01/10/18 06:07 06:08 07:26 Temperature 98.3 F 98.8 F Pulse Rate 79 78 76 Respiratory 18 18 Rate Blood Pressure 110/63 94/64 O2 Sat by Pulse 95 95 95 Oximetry 01/10/18 09:05 Temperature Pulse Rate 88 Respiratory Rate Blood Pressure 125/62 O2 Sat by Pulse Oximetry - Labs CBC & Chem 7: 01/08/18 20:32 01/10/18 08:02
--- NOTE | 2018-01-10 12:59 | Progress Note ---
Assessment and Plan - Patient Problems (1) Chest pain Current Visit: Yes Status: Acute Plan to address problem: Chest pain, atypical normal MPI this admission. pt refused an echocardiogram. No further cardiac workup indicated. Conservative cardiac management. Subjective Date of service: 01/10/18 Interval history: No cardiac complaints. Objective Vital Signs Temp Pulse Resp BP Pulse Ox 01/10/18 09:05 88 125/62 01/10/18 07:26 98.8 F 76 18 94/64 95 01/10/18 06:08 78 95 01/10/18 06:07 98.3 F 79 18 110/63 95 01/09/18 22:00 91 H 20 01/09/18 20:45 98.7 F 84 18 125/66 96 01/09/18 20:22 20 01/09/18 20:07 97.9 F 89 20 124/77 93 01/09/18 15:15 20 01/09/18 13:59 91 H 140/62 01/09/18 13:06 90 140/62 96 01/09/18 13:01 18 - Physical Examination General: No Apparent Distress Cardiac: Positive: Reg Rate and Rhythm - Labs and Meds Comprehensive Metabolic Panel 01/10/18 Range/Units 08:02 Potassium 3.9 (3.6-5.0) mmol/L - Imaging and Cardiology EKG: report reviewed
--- NOTE | 2018-01-10 14:41 | Cat Scan Report ---
CT HEAD WITHOUT CONTRAST: HISTORY: Lower extremity weakness. TECHNIQUE: Sequential 2.5mm CT images. COMPARISON: 04/06/17. FINDINGS: Cerebral Parenchyma: Within normal limits. Cerebellum: Within normal limits. Brainstem: Within normal limits. Ventricles: Normal. Sella: Normal. Extra-axial spaces: Normal. Basal Cisterns: Normal. Intracranial Hemorrhage: None. Midline Shift: None. Calvarium: Normal. Sinuses: Normal. Mastoid Air Cells: Normal. Visualized Orbits: Normal. IMPRESSION: Cranial CT scan within normal limits.
--- NOTE | 2018-01-10 14:45 | Cat Scan Report ---
CT LUMBAR SPINE WITHOUT CONTRAST HISTORY: Decreased mobility with pain. TECHNIQUE: Helical CT with sagittal and coronal reformatted images. Findings: Osteopenia is evident. There is moderate multilevel degenerative disc disease and facet arthropathy. L4-5 appears to be the most affected level. No evidence for compression deformity or or subluxation. No bone lesion is detected. The central canal appears within normal limits. The paraspinal soft tissues are unremarkable. IMPRESSION: Osteopenia. Degenerative changes. No acute injury is appreciated.
--- NOTE | 2018-01-11 00:58 | Treadmill Report ---
THALLIUM STRESS TEST LEFT VENTRICLE: Left ventricular chamber size is within normal limits. Perfusion study demonstrates fairly homogeneous uptake of the tracer in all segments, no significant perfusion defect identified. Gated analysis demonstrates well-preserved left ventricular systolic function with ejection fraction of 59%. CONCLUSION: Suboptimal perfusion study, no demonstrable ischemic coronary disease. Clinical correlation is recommended. [facility]# [id number] CA/NTS
[2018-01-11] MEDS: FLEXERIL PO PRN (01:56)
[2018-01-11] MEDS: ROXICODONE PO PRN ×6 (01:57→21:30)
[2018-01-11] MEDS: LASIX PO SCH ×4 (09:19→21:36)
[2018-01-11] MEDS: LOVENOX SUB-Q SCH (09:19)
[2018-01-11] MEDS: NEURONTIN PO SCH ×2 (09:19→21:38)
--- NOTE | 2018-01-11 09:29 | Progress Note ---
Assessment and Plan - Patient Problems (1) Chest pain Current Visit: Yes Status: Acute Plan to address problem: Chest pain, atypical normal MPI this admission. pt refused an echocardiogram. Conservative cardiac management. Subjective Date of service: 01/11/18 Interval history: No interval changes. Objective Vital Signs Temp Pulse Resp BP BP Pulse Ox 01/11/18 07:33 98.8 F 78 20 121/75 95 01/10/18 22:00 18 100 01/10/18 21:34 98.6 F 81 20 125/70 95 01/10/18 21:29 98.6 F 84 20 125/70 95 01/10/18 21:27 87 96 01/10/18 15:48 98.7 F 82 20 119/71 98 01/10/18 10:00 20 100 - Physical Examination General: No Apparent Distress HEENT: Positive: PERRL Neck: Positive: trachea midline Cardiac: Positive: Reg Rate and Rhythm Lungs: Positive: Decreased Breath Sounds Neuro: Positive: Grossly Intact Extremities: Absent: edema - Imaging and Cardiology EKG: report reviewed
[2018-01-11] MEDS: ZESTRIL PO SCH (10:12)
--- NOTE | 2018-01-11 16:45 | Progress Note ---
Assessment and Plan - Patient Problems (1) Chest pain Current Visit: Yes Status: Acute Plan to address problem: Chest pain atypical patient chest pain-free at this particular time and negative EKG and negative troponin negative stress test. Refused echo. Noncardiogenic. (2) Back pain at L4-L5 level Current Visit: No Status: Acute Plan to address problem: Patient with chronic back pain known to myself. Aware of narcotics at different hospitals. Patient with chronic back pain narcotic dependence. Agree with rehabilitation services. Patient will also require pain management at some point. (3) Chronic pain syndrome Current Visit: No Status: Acute Plan to address problem: Patient on Roxicodone. Every 4 hours. Will benefit from old records at Hospital. Patient does not need to be hospitalized for this. Physical therapy more appropriate. custodial facility more appropriate. History Interval history: Patient clearly not in pain now. Appears to be comfortable with current meds. Appealing discharge. All questions and concerns answered. Patient ask about swelling in the lower extremities. When I explained possible etiologies they still refused echocardiogram did not give a reason why. Patient known to my practice for many years ago. Chronic pain issues. Hospitalist Physical - Constitutional Vitals: Temp Pulse Resp BP Pulse Ox 98.8 F 78 20 121/75 95 01/11/18 07:33 01/11/18 07:33 01/11/18 07:33 01/11/18 07:33 01/11/18 07:33 General appearance: Present: no acute distress, well-nourished - Extremities Extremities: no ischemia, pulses intact, pulses symmetrical Extremity abnormal: edema, other (+1 edema) Peripheral Pulses: within normal limits - Abdominal General gastrointestinal: soft, non-tender, non-distended - Integumentary Integumentary: Present: clear, warm, dry - Psychiatric Psychiatric: appropriate mood/affect, intact judgment & insight, cooperative - Neurologic Neurologic: CNII-XII intact, moves all extremities Results - Labs CBC & Chem 7: 01/08/18 20:32 01/10/18 08:02 Labs: Laboratory Last Values WBC 7.9 K/mm3 (4.5-11.0) 01/08/18 20:32 RBC 4.34 M/mm3 (3.65-5.03) 01/08/18 20:32 Hgb 12.8 gm/dl (11.8-15.2) 01/08/18 20:32 Hct 37.4 % (35.5-45.6) 01/08/18 20:32 MCV 86 fl (84-94) 01/08/18 20: MCH 29 pg (28-32) 01/08/18 20:32 MCHC 34 % (32-34) 01/08/18 20:32 RDW 15.7 % (13.2-15.2) H 01/08/18 20:32 Plt Count 267 K/mm3 (140-440) 01/08/18 20:32 Lymph % (Auto) 16.2 % (13.4-35.0) 01/08/18 20:32 Dade % (Auto) 9.1 % (0.0-7.3) H 01/08/18 20:32 Eos % (Auto) 0.6 % (0.0-4.3) 01/08/18 20: Baso % (Auto) 0.4 % (0.0-1.8) 01/08/18 20: Lymph # 1.3 K/mm3 (1.2-5.4) 01/08/18 20: Dade # 0.7 K/mm3 (0.0-0.8) 01/08/18 20: Eos # 0.1 K/mm3 (0.0-0.4) 01/08/18 20:32 Baso # 0.0 K/mm3 (0.0-0.1) 01/08/18 20:32 Seg Neutrophils % 73.7 % (40.0-70.0) H 01/08/18 20: Seg Neutrophils # 5.9 K/mm3 (1.8-7.7) 01/08/18 20:32 Sodium 143 mmol/L (137-145) D 01/09/18 05:25 Potassium 3.9 mmol/L (3.6-5.0) 01/10/18 08:02 Chloride 96.2 mmol/L (98-107) L 01/09/18 05:25 Carbon Dioxide 29 mmol/L (22-30) 01/09/18 05:25 Anion Gap 21 mmol/L 01/09/18 05:25 BUN 4 mg/dL (9-20) L 01/09/18 05:25 Creatinine 0.6 mg/dL (0.8-1.5) L 01/09/18 05:25 Estimated GFR > 60 ml/min 01/09/18 05:25 BUN/Creatinine Ratio 7 % 01/09/18 05:25 Glucose 91 mg/dL (75-100) 01/09/18 05:25 Calcium 8.5 mg/dL (8.4-10.2) 01/09/18 05:25 Troponin T < 0.010 ng/mL (0.00-0.029) 01/09/18 02:44 NT-Pro-B Natriuret Pep 75.16 pg/mL (0-900) 01/08/18 20:32
[2018-01-12] MEDS: ROXICODONE PO PRN ×3 (01:28→09:36)
--- NOTE | 2018-01-12 08:26 | Progress Note ---
Subjective Date of service: 01/12/18 Objective - Labs CBC & Chem 7: 01/08/18 20:32 01/10/18 08:02
[2018-01-12 08:54] VITALS: BP 121/74
[2018-01-12] MEDS: LOVENOX SUB-Q SCH (09:24)
[2018-01-12] MEDS: LASIX PO SCH (09:38)
[2018-01-12] MEDS: NEURONTIN PO SCH (09:38)
[2018-01-12] MEDS: ZESTRIL PO SCH (09:57)
--- NOTE | 2018-01-12 18:41 | Discharge Summary ---
Providers - Providers Date of Admission: 01/08/18 22:58 Date of discharge: 01/12/18 Attending physician: REMINGTON SHIPLEY 01/09/18 15:20 Physical Therapy Evaluation and Treat [CONS] Routine Comment: Reason For Exam: Pt stated that he is not able to walk Primary care physician: [facility]ER Hospitalization Reason for admission: chest pain Condition: Stable Pertinent studies: Stress thallium Procedures: none Hospital course: 67-year-old male presented to the emergency department complaining of chest tightness at started this afternoon. Patient was complaining chest tightness, left-sided substernal crushing pain, 9 out of 10 in intensity, associated with tingling of the left arm, diaphoresis, pain is getting worse with exertion, no alleviating factors identified. Patient is also complaining of bilateral leg swelling and orthopnea that started this morning. Patient said he has no significant medical history except musculoskeletal pain, has been taking pain medication and had multiple surgeries. Patient's concerned that because of his family history of congestive heart failure, diabetes and stroke. Patient was admitted. Commenced on oxygen, nitroglycerin, aspirin and morphine. Stress was done. Report was negative. Echocardiogram was ordered. Patient declined. Was consistently demanding Roxicodone for chronic low back pain. Patient's pain medications demand is out of proportion to level of pain. Patient stated he is not able to put weight on his feet because of his chronic low back pain however patient walked out of his room and left AGAINST MEDICAL ADVICE with his who was always in the room besides the patient . Disposition: TO HOME OR SELFCARE Time spent for discharge: 34 mins Core Measure Documentation - Palliative Care Palliative Care/ Comfort Measures: Not Applicable - Core Measures Any of the following diagnoses?: none Exam - Physical Exam Narrative exam: Constitutional: Well-nourished well-developed. In no distress Head: Normocephalic atraumatic Eyes: Pupils are equal round and reactive to light Nose: No enlarged turbinates, no septal deviation. Mouth: Moist mucous membranes. Neck: Supple no thyromegaly. No bruit. No JVD Heart: Regular rate and rhythm, S1-S2 abnormal. No rubs murmurs or gallop Lungs: Clear to auscultation bilaterally no rales or rhonchi Abdomen: Soft, nontender. Bowel sound are present. Extremities: No edema no cyanosis and no clubbing. Neuro: Alert oriented Oriented x3. No focal sensory or motor deficit. Skin: No rashes no hyperemic spots Psychiatry: Euthymic. Calm. - Constitutional Vitals: Temp Pulse Resp BP Pulse Ox 97.7 F 73 20 121/74 98 01/12/18 07:19 01/12/18 09:57 01/12/18 10:00 01/12/18 09:57 01/12/18 10:00 Plan Activity: advance as tolerated, fall precautions Weight Bearing Status: Weight Bear as Tolerated Diet: low salt Follow up with: PRIMARY CARE, [Primary Care Provider] - 3-5 Days Prescriptions: Lisinopril [Zestril TAB] 2.5 mg PO QDAY #30 tablet Pantoprazole [Protonix] 40 mg PO QDAY #30 tablet
== END 2018-01-12 10:55 | disposition left against medical advice (07) | DRG 392 ==
LOC: ED 19:59 → 4A 22:58 → 2B-ACE 01-09 21:09
PROVIDERS: ADMIT Internal Medicine; ATTEND Family Medicine
DX: K21.9 Gastro-esophageal reflux disease without esophagitis (principal); F11.20 Opioid dependence, uncomplicated; M79.1 Myalgia; I50.9 Heart failure, unspecified; M19.90 Unspecified osteoarthritis, unspecified site; E66.9 Obesity, unspecified; M25.473 Effusion, unspecified ankle; E87.6 Hypokalemia; M54.9 Dorsalgia, unspecified; G89.4 Chronic pain syndrome; Z79.899 Other long term (current) drug therapy; Z90.49 Acquired absence of other specified parts of digestive tract; Z82.3 Family history of stroke; Z83.3 Family history of diabetes mellitus; Z82.49 Family history of ischemic heart disease and other diseases of the circulatory system; Z68.28 Body mass index [BMI] 28.0-28.9, adult
CPT/HCPCS: 36415; 70450; 71046; 72131; 78452; 80048; 83880; 84132; 84484; 85025; 93005; 93010; 93017; A9502; G8978-GP; G8979-GP; J1650; J1940; J2270; J2785

== ENCOUNTER 2018-03-31 18:10 | Emergency (ER) | payer MEDICARE ==
--- NOTE | 2018-04-01 00:51 | Emergency Department Report ---
ED Neck Pain/Injury HPI - General Chief Complaint: Fall Stated Complaint: SEVERE BACK/NECK PAIN FROM FALL Time Seen by Provider: 04/01/18 00:49 Mode of arrival: Wheelchair Limitations: No Limitations - History of Present Illness Initial Comments: Patient fell while getting down from a cab of a truck that his brother had recently bought, when his hand slipped, and he fell down approximately 6 feet, landing directly onto his buttock, and falling onto his back and striking his head, with resulting inability to stand or walk secondary weakness and inability to feel in his lower extremities, with significant pain as well as weakness in his upper extremities, right greater than left, with additional significant severe neck and back pain. He was brought in by family, but they had to carry him to the car, and carry him into the emergency room, as patient was unable to stand. He also reports that he was incontinent of feces twice, and incontinent of urine several times. MD Complaint: neck pain, upper back pain, other (mid and lower back injury) Onset/Timin -: Sudden, hour(s) Place: home, other (after riding in brother's truck, trying to get down from cab , slipped) Severity: severe Severity scale (0 -10): 10 Quality: sharp, aching, tingling, other (numbness lower extremities, weakness lower extremities, inability to walk) Improves With: none Worsens With: none Context: fall Associated Symptoms: headache - Related Data Home Medications Medication Instructions Recorded Confirmed Last Taken oxyCODONE [Roxicodone TAB] 30 mg PO Q4H PRN 01/09/18 01/09/18 Unknown Previous Rx's Medication Instructions Recorded Last Taken Type Cyclobenzaprine [Flexeril 10 MG 10 mg PO TID PRN #20 tablet 04/08/17 1 Day Ago Rx TAB] ~01/08/18 10 Gabapentin [Neurontin] 400 mg PO BID #60 capsule 04/08/17 1 Day Ago Rx ~01/08/18 400 clonazePAM [Klonopin] 1 mg PO TID #20 tablet 04/08/17 1 Day Ago Rx ~01/08/18 1 Lisinopril [Zestril TAB] 2.5 mg PO QDAY #30 tablet 01/09/18 Unknown Rx Pantoprazole [Protonix] 40 mg PO QDAY #30 tablet 01/09/18 Unknown Rx Allergies Allergy/AdvReac Type Severity Reaction Status Date / Time ketorolac tromethamine Allergy Rash Verified 02/21/17 11:48 [From Toradol] ED Review of Systems ROS: Stated complaint: SEVERE BACK/NECK PAIN FROM FALL Other details as noted in HPI Constitutional: weakness. denies: chills, diaphoresis, fever Eyes: denies: eye pain, eye discharge, vision change ENT: denies: ear pain, throat pain Respiratory: no symptoms reported Cardiovascular: denies: chest pain Endocrine: no symptoms reported Gastrointestinal: denies: abdominal pain, nausea, vomiting Genitourinary: other (urinary incontinence twice after fall) Musculoskeletal: back pain Neurological: headache, weakness (paralysis both lower extremities, right greater than left), numbness (lower extremities below waist), paresthesias ( tingling, particularly right leg), abnormal gait (unable to walk or bear weight) . denies: confusion Psychiatric: denies: anxiety, depression Hematological/Lymphatic: denies: easy bleeding, easy bruising ED Past Medical Hx - Past Medical History Previous Medical History?: Yes Hx Heart Attack/AMI: No Hx Deep Vein Thrombosis: (Unknown) Hx Arthritis: Yes (Neck, lower back) Additional medical history: Subarachnoid cyst T1-T5. Laminectomy L4-5. Past history of falls, multiple evaluations this emergency department - Surgical History Past Surgical History?: Yes Hx Pacemaker: No Hx Internal Defibrillator: No Hx Cholecystectomy: Yes Additional Surgical History: laminectomy L4-L5 2003. right inguinal Hernia Repair - Social History Smoking Status: Never Smoker Substance Use Type: Prescribed - Medications Home Medications: Home Medications Medication Instructions Recorded Confirmed Last Taken Type Cyclobenzaprine [Flexeril 10 MG 10 mg PO TID PRN #20 tablet 04/08/17 01/09/18 1 Day Ago Rx TAB] ~01/08/18 10 Gabapentin [Neurontin] 400 mg PO BID #60 capsule 04/08/17 01/09/18 1 Day Ago Rx ~01/08/18 400 clonazePAM [Klonopin] 1 mg PO TID #20 tablet 04/08/17 01/09/18 1 Day Ago Rx ~01/08/18 1 Lisinopril [Zestril TAB] 2.5 mg PO QDAY #30 tablet 01/09/18 Unknown Rx Pantoprazole [Protonix] 40 mg PO QDAY #30 tablet 01/09/18 Unknown Rx oxyCODONE [Roxicodone TAB] 30 mg PO Q4H PRN 01/09/18 01/09/18 Unknown History ED Physical Exam - General Limitations: No Limitations General appearance: alert, in distress (complaining of pain in neck, head, thoracic and lumbar back, pelvis and hips) - Head Head exam: Present: atraumatic, normocephalic - Eye Eye exam: Present: PERRL, EOMI - ENT ENT exam: Present: normal exam, mucous membranes moist, TM's normal bilaterally - Neck Neck exam: Present: tenderness (bilaterally, and cervical vertebral spine). Absent: meningismus, full ROM (discomfort with movement) - Respiratory Respiratory exam: Present: normal lung sounds bilaterally. Absent: respiratory distress, wheezes, rales - Cardiovascular Cardiovascular Exam: Present: regular rate, normal heart sounds - GI/Abdominal GI/Abdominal exam: Present: soft. Absent: distended, tenderness, guarding, rebound - Rectal Rectal exam: Present: deferred - exam: Present: other (no incontinence noted during examination or observation ) - Extremities Exam Extremities exam: Present: other (inability to lift either leg off the stretcher , 0 effort against gravity. Minimal active motion of toes of left foot, none of right foot) - Back Exam Back exam: Present: tenderness (bilateral lumbar and thoracic spine, with central lumbar and thoracic spine tenderness, no step-off), paraspinal tenderness, vertebral tenderness, other (pain on pelvic rock, no gross instability) - Neurological Exam Neurological exam: Present: alert, oriented X3, CN II-XII intact, motor sensory deficit (lateral weakness lower extremities, 0 effort against gravity, significant weakness right upper extremity, 1 over 5 strength against gravity, 4 out of 5 strength left upper extremity) - Psychiatric Psychiatric exam: Present: anxious - Skin Skin exam: Present: warm, dry ED Course Vital Signs 03/31/18 03/31/18 03/31/18 18:28 22:21 22:30 Temperature 98.7 F Pulse Rate 100 H 96 H Respiratory 20 11 L Rate Blood Pressure 164/97 132/86 Blood Pressure [Right] O2 Sat by Pulse 95 98 100 Oximetry 03/31/18 03/31/18 03/31/18 22:35 22:46 23:00 Temperature 98.2 F Pulse Rate 86 Respiratory 18 15 11 L Rate Blood Pressure 132/86 140/74 Blood Pressure 132/86 [Right] O2 Sat by Pulse 100 100 100 Oximetry 03/31/18 03/31/18 03/31/18 23:16 23:30 23:46 Temperature Pulse Rate Respiratory 54 H 29 H 27 H Rate Blood Pressure 140/74 140/74 140/74 Blood Pressure [Right] O2 Sat by Pulse 100 99 100 Oximetry 04/01/18 04/01/18 04/01/18 00:00 00:16 00:30 Temperature Pulse Rate Respiratory 17 12 12 Rate Blood Pressure 146/77 146/77 146/77 Blood Pressure [Right] O2 Sat by Pulse 100 100 99 Oximetry 04/01/18 04/01/18 04/01/18 00:46 01:00 01:16 Temperature Pulse Rate Respiratory 13 16 18 Rate Blood Pressure 146/77 147/74 146/77 Blood Pressure [Right] O2 Sat by Pulse 97 99 98 Oximetry 04/01/18 04/01/18 04/01/18 01:30 01:46 02:00 Temperature Pulse Rate Respiratory Rate Blood Pressure 146/77 146/77 146/77 Blood Pressure [Right] O2 Sat by Pulse 99 100 98 Oximetry 04/01/18 04/01/18 04/01/18 02:16 04:02 04:16 Temperature Pulse Rate 83 78 Respiratory 11 L 11 L Rate Blood Pressure 146/77 134/82 134/82 Blood Pressure [Right] O2 Sat by Pulse 98 97 94 Oximetry 04/01/18 04:30 Temperature Pulse Rate 83 Respiratory 9 L Rate Blood Pressure 134/82 Blood Pressure [Right] O2 Sat by Pulse 99 Oximetry - Reevaluation(s) Reevaluation #1: 04/01/18 06:30 Repeat examination at 0415 hrs., patient has significantly improved activity of lower extremities, able to flex and extend both feet fairly well, but still has significant weakness of both lower extremities, with 0 patellar reflexes bilaterally, although there is some spontaneous movement of each lower extremity , although patient still cannot lift legs off stretcher. Patient has good strength in both upper extremities, able to lift both hands 5 out of 5 against gravity, with no drift after 5-10 seconds. Brass Sorter strength and good, normal gross sensation. - Consultations Consultation #1: 04/01/18 06:29 [facility] trauma service, neurosurgeon, Dr. Bush, contacted, findings discussed, with significant past history of similar complaints, and possible secondary gain on previous evaluations and hospitalizations. Findings of CT scan and repeat examinations discussed, and patient accepted for transfer at 0610 hrs. ED Medical Decision Making - Lab Data Result diagrams: 04/01/18 01:56 04/01/18 04:01 - Radiology Data Radiology results: report reviewed (CT scan shows cervical degenerative disc disease, with cervical spinal stenosis, but no acute fracture seen on cervical, thoracic, or lumbar spine, although there is significant vertebral height loss on several lumbar vertebra, and these are felt to be chronic.) - Medical Decision Making Review of patient's prior charts show surprisingly similar complaints on multiple previous emergency department visits, with hospitalization for same, during time in which neurosurgical consultation was available. Patient was felt to be stable, MRI was unremarkable, and patient was discharged in stable condition, where was felt that patient had been seeking narcotics as a secondary motivation for complaint. Patient had not been seen here for over a year, but review of chart shows the patient recounts much of the same history, including same mechanism of injury, with same symptoms of paralysis and weakness of extremities, with associated incontinence, and with variable levels of weakness of both upper and lower extremities. Although patient's findings are variable, and some of his symptoms are not anatomically or neurologically compatible, patient still needs benefit of trauma neurosurgical evaluation, which is not currently available at this facility. On recommendation of transfer, patient initially adamantly refuses, reports that he has had bad experiences at both [facility] and [facility], and declines to be transferred. When offered to be transferred to [facility], patient again declines, and insists on being admitted here, even after explaining that neurosurgical capability was not available, and that patient could not be given the standard care that was necessary for his injury and complaints. Patient then reported that he would sign AGAINST MEDICAL ADVICE, and that he would follow with the neurosurgeon that his brother either later today, or at the beginning of next week. When I explained that that was clearly not in his best interest, and then he could suffer significant worsening of injury, patient was again adamant that he would seek his own care, and then asked for pain medicine to last him through the weekend. After I declined, patient reconsidered his refusal, and ultimately accepts transfer to [facility]. On consultation with transfer services [facility], I made clear that patient had findings worrisome for injury, but that there is significant suspicion for underlying secondary gain of narcotic seeking or pain medication. Nonetheless, transfer center and consulting physician, Dr. Bush, accept patient for trauma neurosurgical evaluation at [address] scans and prior ED visits for similar complaints included in medical records at transfer. Critical Care Time: Yes (60 minutes) Critical care attestation.: If time is entered above; I have spent that time in minutes in the direct care of this critically ill patient, excluding procedure time. Critical Care Time: 60 minutes of critical care time was provided in assessing and stabilizing this patient with a potentially life-threatening spinal cord injury, and make an appropriate arrangements for transfer and specialty evaluation, for services which are not available here. No billable procedures were performed during this encounter. ED Disposition Clinical Impression: Paralysis of both lower limbs Lower back injury Qualifiers: Encounter type: initial encounter Qualified Code(s): S39.92XA - Unspecified injury of lower back, initial encounter Neck injury Qualifiers: Encounter type: initial encounter Qualified Code(s): S19.9XXA - Unspecified injury of neck, initial encounter Urinary incontinence Qualifiers: Urinary Incontinence type: other incontinence Qualified Code(s): N39.498 - Other specified urinary incontinence Fecal incontinence Qualifiers: Fecal incontinence type: unspecified Qualified Code(s): R15.9 - Full incontinence of feces Disposition: DC/TX-70 ANOTHER TYPE HLTHCARE Is pt being admited?: No Does the pt Need Aspirin: No Condition: Stable Referrals: PRIMARY CARE, [Primary Care Provider] - 3-5 Days Time of Disposition: 06:10
[2018-04-01] MEDS ORDERED: SUBLIMAZE IV ONE ×2 (01:11→04:44)
[2018-04-01] MEDS ORDERED: ZOFRAN IV ONE (01:11)
--- NOTE | 2018-04-01 01:40 | XRay Report ---
FINAL REPORT EXAM: XR CHEST 1V AP HISTORY: FALL 6 FT TRAUMA W/PARALYSIS. TECHNIQUE: A single frontal portable radiograph of the chest was obtained. Comparison is made with prior study 01/08/2018. FINDINGS: The cardiac silhouette and mediastinum are within normal limits. The lungs are clear bilaterally, without focal infiltrate or effusion. There is no pneumothorax. No significant osseous abnormalities are identified. The overall appearance of the chest is stable compared to prior exam. IMPRESSION: No active disease seen in the chest.
[2018-04-01 02:13] LABS: Basophils % (Auto) 0.5 % (0.0-1.8); Eosinophils # (Auto) 0.1 K/mm3 (0.0-0.4); Eosinophils % (Auto) 1.1 % (0.0-4.3); Hematocrit 36.6 % (35.5-45.6); Hemoglobin 12.5 gm/dl (11.8-15.2); Lymphocytes % (Auto) 28.9 % (13.4-35.0); Mean Corpuscular HGB Conc 34 % (32-34); Mean Corpuscular Hemoglobin 29 pg (28-32); Mean Corpuscular Volume 86 fl (84-94); Monocytes # (Auto) 0.9 K/mm3 (0.0-0.8); Monocytes % (Auto) 13.2 % (0.0-7.3); Platelet Count 227 K/mm3 (140-440); Red Blood Count 4.28 M/mm3 (3.65-5.03); Red Cell Distribution Width 16.4 % (13.2-15.2)
[2018-04-01 02:23] LABS: INR 1.01 (0.87-1.13)
[2018-04-01 02:24] LABS: Partial Thromboplastin Time 27.2 Sec. (24.2-36.6)
--- NOTE | 2018-04-01 03:18 | Cat Scan Report ---
FINAL REPORT EXAM: CT HEAD/BRAIN WO CON HISTORY: fall 6 feet; paralysis lower extremites, incontine COMPARISON: CT of the head from December 2017. TECHNIQUE: Axial images obtained skull base through vertex. FINDINGS: No acute intracranial hemorrhage, midline shift or pathologic extra axial fluid collection. Ventricles and cisterns are normal in size and configuration for the patient's age. Rockwell-white differentiation preserved. Calvarium grossly intact. Ocular globes are grossly unremarkable. Mild mucosal thickening the paranasal sinuses. Mastoid air cells are clear. Moderate calcified plaque at the vertebral arteries and carotid siphons. IMPRESSION: No grossly acute intracranial abnormality.
--- NOTE | 2018-04-01 03:34 | Cat Scan Report ---
FINAL REPORT EXAM: CT CERVICAL SPINE WO CON HISTORY: fall 6 feet; paralysis lower extremites, incontine COMPARISON: None available. TECHNIQUE: Axial images obtained through the cervical spine. Additional sagittal and coronal reformatted images were obtained. FINDINGS: Normal lordotic curvature of the cervical spine. Stable congenital fusion of the C2 and C3 vertebral bodies and posterior elements. Cervical vertebral body heights are preserved. No acute fracture or traumatic subluxation. Odontoid process, articular pillars and occipital condyles are intact. Moderate severe loss of disc height C3-C4 level moderate loss of disc height C5-C6 and C6-C7 levels. Mild to moderate canal stenosis and moderate severe foraminal narrowing at those levels due to endplate osteophyte, uncovertebral hypertrophy and facet changes. Mild to moderate calcified plaque at the carotid bifurcations. Mild scarring at the lung apices. Benign bone island at the T1 level on the right measuring 7 x 7 millimeters. IMPRESSION: No acute fracture or subluxation of the cervical spine. Moderate degenerative changes of the cervical spine. 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
--- NOTE | 2018-04-01 03:41 | Cat Scan Report ---
FINAL REPORT EXAM: CT PELVIS WO CON HISTORY: fall 6 feet; paralysis lower extremites, incontine COMPARISON: None available. TECHNIQUE: Contiguous axial images were obtained. Additional sagittal and coronal reformatted images were obtained. FINDINGS: No acute fracture of the bony pelvis. Mild narrowing of the bilateral hip joint spaces. Mild osteophyte along the acetabular rims. Mild subchondral cyst formation along the lateral margins of the femoral necks. Bilateral pubic rami, bilateral iliac wings, sacrum and coccyx are intact. 1.3 x 0.8 centimeter lucent lesion left ilium with sclerotic margin. This most compatible with benign cyst. Transitional lumbosacral element. There may be partial sacralization of the L5 vertebral body. Mild depression of the superior L4 endplate suspected to be chronic. Depression by the endplate by 3 millimeters. No bony retropulsion. Urinary bladder is unremarkable. Prostate gland is grossly unremarkable. No free fluid or lymphadenopathy in the pelvic cavity. Visualized pelvic bowel loops normal in caliber. Mild gas-filled prominence of the distal rectosigmoid colon likely a transient finding. Partial visualization of surgical changes involving the right colon and distal small bowel. Small right inguinal hernia containing fat only. IMPRESSION: No acute fracture of the bony pelvis. Mild degenerative changes of bilateral hips. Mild depression of the superior L4 endplate suspected to be chronic. If the patient has pain localized to this region, MRI of the lumbar spine may be of benefit to assess acuity of this finding.
--- NOTE | 2018-04-01 03:49 | Cat Scan Report ---
FINAL REPORT EXAM: CT LUMBAR SPINE WO CON HISTORY: fall 6 feet; paralysis lower extremites, incontine COMPARISON: CT of the pelvis from the same date. MRI of the lumbar spine from March 2017. CT lumbar spine from February 2017. CT of the lumbar spine from December 2017. TECHNIQUE: Contiguous axial images were obtained. Additional sagittal and coronal reformatted images were obtained. FINDINGS: Transitional lumbosacral element. There is partial sacralization of the L5 vertebral body. Mild depression of the superior L4 endplate by 3 millimeter stable from prior study. This may relate to degenerative disc disease or sequelae of prior trauma. Remaining lumbar vertebral body heights are preserved. No acute fracture traumatic subluxation of the lumbar spine. Moderate to severe loss of disc height L4-L5 level. Disc heights are preserved at the T12-L1 through L3-L4 levels. T12-L1 through L2-L3 levels, canal and foramina are patent. L3-L4 level, mild facet changes. Mild broad-based disc bulge. Mild canal stenosis. Foramina are patent. L4-L5 level, mild to moderate bilateral facet changes. Mild broad-based disc bulge endplate osteophyte. Mild canal stenosis. Mild to moderate bilateral foraminal narrowing. L5-S1 level, canal and foramina are patent. IMPRESSION: Stable mild superior plate compression deformity at the L4 level. No acute fracture or traumatic subluxation of the lumbar spine. Mild to moderate multilevel degenerative changes of the lumbar spine most pronounced at the L4-L5 level. Mild canal stenosis and mild to moderate bilateral foraminal narrowing at that level.
[2018-04-01] MEDS ORDERED: SUBLIMAZE ONE (03:57)
--- NOTE | 2018-04-01 03:59 | Cat Scan Report ---
FINAL REPORT EXAM: CT THORACIC SPINE WO CON HISTORY: fall 6 feet; paralysis lower extremites, incontine COMPARISON: CT of the thoracic spine from February 2017. TECHNIQUE: Contiguous axial images were obtained. Additional sagittal and coronal reformatted images were obtained. FINDINGS: Thoracic vertebral body heights are preserved. The tiny Schmorl's node deformities at several levels. No acute fracture traumatic subluxation of the thoracic spine. Mild loss of disc height and mild to moderate endplate osteophyte throughout the thoracic spine. No significant bony encroachment on the canal or foramen. Mild linear atelectasis at the dependent portions of the visualized lungs. Mild scarring at the visualized lung apices. Visualized posterior ribs are intact. Benign bone island at the right lateral margin of the T2 vertebral body. IMPRESSION: No acute fracture or traumatic subluxation of the thoracic spine. Stable mild to moderate degenerative changes.
[2018-04-01 04:44] LABS: Alanine Aminotransferase 11 units/L (7-56); BUN/Creatinine Ratio 13; Blood Urea Nitrogen 8 mg/dL (9-20); Calcium 8.9 mg/dL (8.4-10.2); Hemolysis Index 3
[2018-04-01 06:48] VITALS: BP 134/74
== END 2018-04-01 07:30 | disposition other institution (70) ==
LOC: ED 18:10
DX: S39.92XA Unspecified injury of lower back, initial encounter (principal); S19.9XXA Unspecified injury of neck, initial encounter; G83.9 Paralytic syndrome, unspecified; R51 Headache; N39.498 Other specified urinary incontinence; Z79.899 Other long term (current) drug therapy; Z88.6 Allergy status to analgesic agent; W17.89XA Other fall from one level to another, initial encounter; Y93.89 Activity, other specified; Y99.8 Other external cause status; Y92.89 Other specified places as the place of occurrence of the external cause
CPT/HCPCS: 36415; 70450; 71045; 72125; 72128; 72131; 72192; 80053; 85025; 85610; 85730; 86850; 86900; 86901; 96374; 96375; 96376; 99291; G0480; J2405; J3010; 80320

== ENCOUNTER 2019-05-15 20:30 | Emergency (ER) | payer MEDICARE ==
--- NOTE | 2019-05-15 20:43 | Emergency Department Report ---
Blank Doc - Documentation Documentation: This is a 68-year-old male that presents with neck pain, lower back pain, and right hip pain s/p fall. Stated fell from 4-5 feet ladder. Denies any LOC or head trauma. Stated has bladder incontinent since then. This initial assessment/diagnostic orders/clinical plan/treatment(s) is/are subject to change based on patient's health status, clinical progression and re- assessment by fellow clinical providers in the ED. Further treatment and workup at subsequent clinical providers discretion. Patient/guardians urged not to elope from the ED as their condition may be serious if not clinically assessed and managed. Initial orders include: 1- Patient sent to MAIN ED for further evaluation and treatment. 2- CT of hip, lumbar, and cervical area
[2019-05-15] MEDS ORDERED: NORCO 5/325 PO ONE (21:22)
--- NOTE | 2019-05-15 21:34 | Emergency Department Report ---
HPI - General Chief Complaint: Fall Time Seen by Provider: 05/15/19 20:40 - HPI HPI: Room 5 The patient is a 68-year-old male presenting with a chief complaint of back pain after fall. The patient states this evening at approximately 18:30 while ragini eli a ceiling fan fell off a step ladder after children ran into causing him to fall. Patient complains of pain in his upper or lower back in addition to numbness in the right lower extremity. Patient states he was incontinent of stool. The patient had a similar presentation in September 2018 and was seen by myself requiring transfer to [facility] Location: [See above] Duration: [See above] Quality: [See above] Severity: [See above] Modifying factors: [see above] Context: [see above] Mode of transportation: [not driving] ED Past Medical Hx - Past Medical History Previous Medical History?: Yes Hx Deep Vein Thrombosis: (Unknown) Hx Arthritis: Yes (Neck, lower back) Additional medical history: Subarachnoid cyst T1-T5. Laminectomy L4-5. Past history of falls, multiple evaluations this emergency department - Surgical History Past Surgical History?: Yes Hx Cholecystectomy: Yes Additional Surgical History: laminectomy L4-L5 2003. right inguinal Hernia Repair - Family History Family history: no significant - Social History Smoking Status: Never Smoker Substance Use Type: None - Medications Home Medications: Home Medications Medication Instructions Recorded Confirmed Last Taken Type clonazePAM [Klonopin] 1 mg PO TID #20 tablet 04/08/17 11/06/18 11/05/18 Rx oxyCODONE [roxiCODONE] 30 mg PO Q4H PRN 01/09/18 11/06/18 11/04/18 History Gabapentin [Neurontin] 600 mg PO TID 11/06/18 11/06/18 11/05/18 History Morphine ER [Ms Contin ER] 30 mg PO TID 11/06/18 11/06/18 11/05/18 History ED Review of Systems ROS: Stated complaint: FALL/BACK/LEG/PAIN/NUMBNESS Other details as noted in HPI Constitutional: no symptoms reported Eyes: denies: eye pain ENT: denies: throat pain Respiratory: no symptoms reported Cardiovascular: denies: chest pain Endocrine: no symptoms reported Gastrointestinal: denies: abdominal pain Genitourinary: denies: dysuria Musculoskeletal: back pain Neurological: weakness, paresthesias Physical Exam - Physical Exam Vital Signs: Vital Signs 05/15/19 20:45 Temperature 98.1 F Pulse Rate 83 Respiratory 18 Rate Blood Pressure 123/89 [Left] O2 Sat by Pulse 96 Oximetry Physical Exam: GENERAL: The patient is well-developed well-nourished male lying on stretcher with cervical collar in place not appear to be in acute distress. [] HEENT: Normocephalic. Atraumatic. Extraocular motions are intact. Patient has moist mucous membranes. NECK: Supple. Trachea midline CHEST/LUNGS: Clear to auscultation. There is no respiratory distress noted. HEART/CARDIOVASCULAR: Regular. There is no tachycardia. There is no gallop rub or murmur. ABDOMEN: Abdomen is soft, nontender. Patient has normal bowel sounds. There is no abdominal distention. SKIN: There is no rash. There is no edema. There is no diaphoresis. NEURO: The patient is awake, alert, and oriented. The patient is cooperative. The patient states he has decreased sensation to the right lower extremity. Patient states he is barely able to move his right lower extremity (the right foot which is slightly). Decreased rectal tone/patient does not squeeze when instructed. The patient has normal speech MUSCULOSKELETAL: There is tenderness to palpation of the upper thoracic spine in addition to the lumbar spine. ED Course Vital Signs 05/15/19 20:45 Temperature 98.1 F Pulse Rate 83 Respiratory 18 Rate Blood Pressure 123/89 [Left] O2 Sat by Pulse 96 Oximetry - Consultations Consultation #1: 05/15/19 23:49 [facility] transfer line called 05/16/19 00:27 Patient accepted to [facility] ED by Dr. Swan ED Medical Decision Making - Radiology Data Radiology results: report reviewed (CT cervical spine, CT thoracic spine, CT lumbar spine, right hip x-ray), image reviewed (CT cervical spine, CT thoracic spine, CT lumbar spine, right hip x-ray) interpreted by me: Right hip x-ray-no acute fracture [facility] [address] [place] [address] Cat Scan Report Signed Patient: CHUCK VARGAS MR#: [id number] : 1950 Acct:[id number] Age/Sex: 68 / M ADM Date: 05/15/19 Loc: ED Attending Dr: Ordering Physician: MIGUELINA CORNELL NP Date of Service: 05/15/19 Procedure(s): CT cervical spine wo con Accession Number(s): [id number] cc: MIGUELINA CORNELL NP CT cervical spine wo con INDICATION: neck pain s/p fall. TECHNIQUE: All CT scans at this location are performed using CT dose reduction for ALARA by means of automated exposure control. COMPARISON: 09/18/2018 FINDINGS: Extensive degenerative change. No fracture or subluxation. Sclerotic densities are demonstrated in C3 vertebral body, left lamina of C6 and C7 vertebral body. Appearance is worrisome for sclerotic metastases. IMPRESSION: 1. Questionable sclerotic metastases. 2. No fracture or other acute abnormality Signer Name: Santiago Maldonado MD Signed: 05/15/2019 9:44 PM Workstation Name: [id number] Transcribed By: REF Dictated By: KORIN PAGAN MD Electronically Authenticated By: KORIN PAGAN MD Signed Date/Time: 05/15/192143 DD/DT: 0 05/15/192137 TD/TT: [facility] [address] [place] [address] Cat Scan Report Signed Patient: CHUCK VARGAS MR#: [id number] : 1950 Acct:[id number] Age/Sex: 68 / M ADM Date: 05/15/19 Loc: ED Attending Dr: Ordering Physician: ELODIA NUNEZ MD Date of Service: 05/15/19 Procedure(s): CT lumbar spine wo con Accession Number(s): [id number] cc: ELODIA NUNEZ MD CT lumbar spine wo con INDICATION: pain after fall. Lower extremity weakness. TECHNIQUE: All CT scans at this location are performed using CT dose reduction for ALARA by means of automated exposure control. COMPARISON: None available. FINDINGS: Degenerative disc change at L4-5. Superior endplate of L4 appears minimally compressed, but this appears to be old. I see no acute fracture or subluxation. IMPRESSION: 1. No acute abnormality Signer Name: Santiago Maldonado MD Signed: 05/15/2019 9:51 PM Workstation Name: [id number] Transcribed By: REF Dictated By: KORIN PAGAN MD Electronically Authenticated By: KORIN PAGAN MD Signed Date/Time: 05/15/192150 DD/ 43 TD/TT: [facility] [address] [place] [address] Cat Scan Report Signed Patient: CHUCK VARGAS MR#: [id number] : 1950 Acct:[id number] Age/Sex: 68 / M ADM Date: 05/15/19 Loc: ED Attendi Dr: Ordering Physician: ELODIA NUNEZ MD Date of Service: 05/15/19 Procedure(s): CT thoracic spine wo con Accession Number(s): [id number] cc: ELODIA NUNEZ MD CT thoracic spine wo con INDICATION / CLINICAL INFORMATION: pain after fall. Lower extremity weakness. TECHNIQUE: Axial CT imaging of the thoracic spine was obtained without IV contrast. Sagittal and coronal reformatted imaging obtained and reviewed. All CT scans at this location are performed using CT dose reduction for ALARA by means of automated exposure control. COMPARISON: 09/17/2018 FINDINGS: No thoracic spine fracture or traumatic subluxation is noted. Moderate spondylitic changes are seen throughout the mid and lower spine. Benign bone islands are seen in the upper thoracic spine unchanged from the prior study. Visualized portions of the lungs appear grossly clear. IMPRESSION: 1. No evidence for thoracic spine fracture or traumatic subluxation. 2. Moderate spondylitic change. Signer Name: Yamila Lozano MD Signed: 05/15/2019 9:44 PM Workstation Name: [id number] Transcribed By: REF Dictated By: KORIN PAGAN MD Electronically Authenticated By: KORIN PAGAN MD Signed Date/Time: 05/15/192143 DD/ 39 TD/TT: - Differential Diagnosis cauda equina syndrome, malingering Critical care attestation.: If time is entered above; I have spent that time in minutes in the direct care of this critically ill patient, excluding procedure time. ED Disposition Clinical Impression: Cauda equina syndrome Disposition: DC/TX-70 ANOTHER TYPE HLTHCARE Is pt being admited?: No Does the pt Need Aspirin: No Condition: Stable Time of Disposition: 00:29 (awaiting transport)
--- NOTE | 2019-05-15 22:48 | Cat Scan Report ---
CT cervical spine wo con INDICATION: neck pain s/p fall. TECHNIQUE: All CT scans at this location are performed using CT dose reduction for ALARA by means of automated e xposure control. COMPARISON: 09/18/2018 FINDINGS: Extensive degenerative change. No fracture or subluxation. Sclerotic densities are demonstrated in C3 vertebral body, left lamina of C6 and C7 vertebral body. A ppearance is worrisome for sclerotic metastases. IMPRESSION: 1. Questionable sclerotic metastases. 2. No fracture or other acute abnormality Signer Name: Santiago Maldonado MD Signed: 05/15/2019 9:44 PM Workstation Name: [id number]
--- NOTE | 2019-05-15 22:48 | Cat Scan Report ---
CT thoracic spine wo con INDICATION / CLINICAL INFORMATION: pain after fall. Lower extremity weakness. TECHNIQUE: Axial CT imaging of the thoracic spine was obtained without IV contrast. Sagittal and coronal reforma tted imaging obtained and reviewed. All CT scans at this location are performed using CT dose reducti on for ALARA by means of automated exposure control. COMPARISON: 09/17/2018 FINDINGS: No thoracic spine fracture or traumatic subluxation is noted. Moderate spondylitic changes are seen t hroughout the mid and lower spine. Benign bone islands are seen in the upper thoracic spine unchanged from the prior study. Visualized portions of the lungs appear grossly clear. IMPRESSION: 1. No evidence for thoracic spine fracture or traumatic subluxation. 2. Moderate spondylitic change. Signer Name: Yamila Lozano MD Signed: 05/15/2019 9:44 PM Workstation Name: [id number]
--- NOTE | 2019-05-15 22:55 | Cat Scan Report ---
CT lumbar spine wo con INDICATION: pain after fall. Lower extremity weakness. TECHNIQUE: All CT scans at this location are performed using CT dose reduction for ALARA by means of automated e xposure control. COMPARISON: None available. FINDINGS: Degenerative disc change at L4-5. Superior endplate of L4 appears minimally compressed, but this appe ars to be old. I see no acute fracture or subluxation. IMPRESSION: 1. No acute abnormality Signer Name: Santiago Maldonado MD Signed: 05/15/2019 9:51 PM Workstation Name: [id number]
--- NOTE | 2019-05-15 23:44 | XRay Report ---
RIGHT HIP, 2 VIEWS, 05/15/2019 INDICATION / CLINICAL INFORMATION: pain after fall. COMPARISON: None available. FINDINGS: Mild to moderate degenerative changes are present within the right hip. I do not see any fracture or dislocation. IMPRESSION: No fracture or dislocation. Mild to moderate degenerative change of the right hip. Signer Name: Yamila Lozano MD Signed: 05/15/2019 11:40 PM Workstation Name: [id number]
[2019-05-15] MEDS ORDERED: MORPHINE IM ONE (23:52)
[2019-05-15] MEDS ORDERED: ZOFRAN IM ONE (23:52)
[2019-05-16 01:23] VITALS: BP 136/81
== END 2019-05-16 01:10 | disposition other institution (70) ==
LOC: ED 20:30
DX: G83.4 Cauda equina syndrome (principal); M54.5 Low back pain; M54.6 Pain in thoracic spine; R20.0 Anesthesia of skin; M19.90 Unspecified osteoarthritis, unspecified site; Z90.49 Acquired absence of other specified parts of digestive tract; Z79.899 Other long term (current) drug therapy; Z88.6 Allergy status to analgesic agent; W11.XXXA Fall on and from ladder, initial encounter; Y93.89 Activity, other specified; Y92.89 Other specified places as the place of occurrence of the external cause; Y99.8 Other external cause status
CPT/HCPCS: 72125; 72128; 72131; 73502; 96372; 99284; J2270; J2405

== ENCOUNTER 2019-05-16 09:47 | Emergency (ER) | payer MEDICARE ==
--- NOTE | 2019-05-16 10:13 | Emergency Department Report ---
ED General Adult HPI - General Chief complaint: Fall Stated complaint: Fall Time Seen by Provider: 05/16/19 10:06 Source: patient, RN notes reviewed Mode of arrival: Wheelchair Limitations: Physical Limitation - History of Present Illness Initial comments: This is a 68-year-old gentleman. This patient is known to this provider previously. Patient has a history of narcotic dependence, aortic aneurysm, history of multiple falls, and history of suspected malingering. Please reference his discharge summary from an admission 11/06/2018. The patient p resented to this department yesterday with a chief complaint of back pain after fall. Apparently, the fall happened at approximately 8:30 PM yesterday. Afterwards, the patient had endorses numbness in his right lower extremity, and fecal incontinence. He was documented to have lax rectal tone, and decreased sensation to the right lower extremity. The patient indicated that he was barely able to move his right lower extremity. He had CT scans of the cervical spine, thoracic spine, lumbar spine, which were reportedly negative for traumatic disease, and transfer was recommended to a trauma center for services not available at this facility. Patient was accepted to [facility], and then subsequently left the hospital AGAINST MEDICAL ADVICE. The patient now presents to the ER today indicating that he is initially amenable to transfer, and complaining of persistent thoracic back pain, and persistent weakness and numbness in his right lower extremity. -: Sudden Location: back, right, upper extremity Consistency: constant Improves with: rest Worsens with: movement - Related Data Home Medications Medication Instructions Recorded Confirmed Last Taken oxyCODONE [roxiCODONE] 30 mg PO Q4H PRN 01/09/18 11/06/18 11/04/18 Gabapentin [Neurontin] 600 mg PO TID 11/06/18 11/06/18 11/05/18 Morphine ER [Ms Contin ER] 30 mg PO TID 11/06/18 11/06/18 11/05/18 Previous Rx's Medication Instructions Recorded Last Taken Type clonazePAM [Klonopin] 1 mg PO TID #20 tablet 04/08/17 11/05/18 Rx Allergies Allergy/AdvReac Type Severity Reaction Status Date / Time ketorolac tromethamine Allergy Rash Verified 02/21/17 11:48 [From Toradol] ED Review of Systems ROS: Stated complaint: Fall Other details as noted in HPI Constitutional: denies: fever Eyes: denies: eye discharge ENT: denies: epistaxis Respiratory: denies: cough Cardiovascular: denies: chest pain Gastrointestinal: denies: abdominal pain Musculoskeletal: back pain Neurological: weakness ED Past Medical Hx - Past Medical History Hx Deep Vein Thrombosis: (Unknown) Hx Arthritis: Yes (Neck, lower back) Additional medical history: Subarachnoid cyst T1-T5. Laminectomy L4-5. Past history of falls, multiple evaluations this emergency department - Surgical History Hx Cholecystectomy: Yes Additional Surgical History: laminectomy L4-L5 2003. right inguinal Hernia Repair - Social History Smoking Status: Never Smoker Substance Use Type: None - Medications Home Medications: Home Medications Medication Instructions Recorded Confirmed Last Taken Type clonazePAM [Klonopin] 1 mg PO TID #20 tablet 04/08/17 11/06/18 11/05/18 Rx oxyCODONE [roxiCODONE] 30 mg PO Q4H PRN 01/09/18 11/06/18 11/04/18 History Gabapentin [Neurontin] 600 mg PO TID 11/06/18 11/06/18 11/05/18 History Morphine ER [Ms Contin ER] 30 mg PO TID 11/06/18 11/06/18 11/05/18 History ED Physical Exam - General Limitations: Physical Limitation General appearance: alert, in no apparent distress - Head Head exam: Present: atraumatic, normocephalic - Eye Eye exam: Present: normal appearance, EOMI. Absent: nystagmus - ENT ENT exam: Present: normal exam, normal orophraynx, mucous membranes moist, normal external ear exam - Neck Neck exam: Present: normal inspection, full ROM. Absent: tenderness, meningismus - Respiratory Respiratory exam: Present: normal lung sounds bilaterally. Absent: respiratory distress - Cardiovascular Cardiovascular Exam: Present: regular rate, normal rhythm, normal heart sounds. Absent: bradycardia, tachycardia, irregular rhythm, systolic murmur, diastolic murmur, rubs, gallop - GI/Abdominal GI/Abdominal exam: Present: soft. Absent: distended, tenderness, guarding, rebo und, rigid, pulsatile mass - Rectal Rectal exam: Present: deferred - Extremities Exam Extremities exam: Present: normal inspection, pedal edema, other (2+ pulses noted in the bilateral upper, lower extremities. Compartments soft. No long bony tenderness. The pelvis is stable.). Absent: full ROM, tenderness, calf tenderness - Back Exam Back exam: Present: normal inspection, paraspinal tenderness, vertebral tenderness - Neurological Exam Neurological exam: Present: alert, motor sensory deficit (patient endorses decreased sensation to light touch right lower extremity. Initially has weak dorsi and plantar flexion. 5 out of 5 strength lateral upper extremities. Sensation intact to light touch bilateral upper extremity some left lower extremity. 5 out of 5 strength left lower extremity. Shortly into the patient's course, he is noted to be moving his bilateral lower extremities without difficulty, and was noted to have placed his pants on without difficulty.), other (there is no facial droop. The tongue is midline. Extraocu lar movements are intact bilaterally. He was grossly intact. Normal symmetric phonation) - Psychiatric Psychiatric exam: Present: normal affect, normal mood - Skin Skin exam: Present: warm, dry, intact, normal color. Absent: rash ED Course Vital Signs 05/16/19 05/16/19 09:58 10:15 Temperature 98.1 F Pulse Rate 84 78 Respiratory 16 16 Rate Blood Pressure 172/86 Blood Pressure 138/75 [Right] O2 Sat by Pulse 96 100 Oximetry ED Medical Decision Making - Lab Data Vital Signs 05/16/19 05/16/19 09:58 10:15 Temperature 98.1 F Pulse Rate 84 78 Respiratory 16 16 Rate Blood Pressure 172/86 Blood Pressure 138/75 [Right] O2 Sat by Pulse 96 100 Oximetry - Radiology Data Radiology results: report reviewed, image reviewed Differential diagnosis, including not limited to: Malingering, spinal cord injury, neuropraxia Assessment and plan: 68-year-old gentleman with a history of malingering, h istory of falls, articulation of lower extremity weakness and numbness, patient presented to myself in 2016 for similar symptoms. His objective testing from yesterday is reviewed and appreciated. The patient is informed that he requires transfer to a trauma center, as this hospital does not have trauma surgery or spine surgery available for consultation. The patient was informed that he will be given acetaminophen if needed for pain, but no narcotics will be dispensed, given his history. The patient was counseled that not accepting transfer with resultant discharge AGAINST MEDICAL ADVICE, which would put the patient at risk for , disability, paralysis, permanent loss of quality of life. The patient is alert and oriented, clinically sober, exhibits decision-making capacity. He does not appear to be distracted at this time. This conversation is witnessed by nurse Remi Gonzalez The patient initially refused transfer to [place], and subsequently accepted transfer to [facility]. Shortly thereafter, he refused transfer to [facility]. Critical care attestation.: If time is entered above; I have spent that time in minutes in the direct care of this critically ill patient, excluding procedure time. ED Disposition Clinical Impression: Back pain, Fall, Chronic pain syndrome Disposition: LEFT AGAINST MED ADVICE Is pt being admited?: No Does the pt Need Aspirin: No Condition: Undetermined Additional Instructions: As we discussed, you have left the hospital/emergency room AGAINST MEDICAL ADVICE. By leaving, you risked , disability, paralysis, permanent loss of quality of life. The ER is open 24 hours a day, 7 days a week. It never closes. Please return to the emergency room right away if and when you change your mind. If you decide not to return to the emergency room, please follow-up with the listed physician referrals as soon as possible. Referrals: [facility] [Provider Group] - 3-5 Days CAROLYN BANUELOS MD [Staff Physician] - 3-5 Days Forms: AMA Form
[2019-05-16 10:23] VITALS: BP 138/75
== END 2019-05-16 10:51 | disposition left against medical advice (07) ==
LOC: ED 09:47
DX: G89.4 Chronic pain syndrome (principal); M54.6 Pain in thoracic spine; Z79.899 Other long term (current) drug therapy; Z88.5 Allergy status to narcotic agent; M19.90 Unspecified osteoarthritis, unspecified site; Z90.49 Acquired absence of other specified parts of digestive tract; Z98.890 Other specified postprocedural states
CPT/HCPCS: 99282

== ENCOUNTER 2020-02-10 21:56 | Emergency (ER) | payer MEDICARE ==
[2020-02-11] MEDS ORDERED: ONDANSETRON 4 MG ODT TAB ONE (00:51)
[2020-02-11] MEDS ORDERED: ACETAMINOPHEN W/CODEINE 300-30 MG TAB ONE ×2 (00:51→00:54)
[2020-02-11] MEDS ORDERED: levoFLOXacin 500 MG TAB ONE (00:51)
--- NOTE | 2020-02-11 01:18 | Emergency Department Report ---
HPI - General Chief Complaint: Headache Time Seen by Provider: 02/11/20 00:00 - HPI HPI: This is a 69-year-old male that accompanied his to the hospital for his to be seen. He later decided that he wants to be seen for headache. Patient complaining of facial pain like a headache for 4 weeks. He states his stomach also hurts that is been ongoing for 3 days. He is complaining of rash to his head. Patient has a history of chronic pain syndrome, multiple falls and has been evaluated in the emergency room out multiple times. He said his pain is 6 out of 10 and aching. Denies any cough, shortness of breath or chest pain. Denies any blurred vision or dizziness. Denies any head injury or falls. Denies any sore throat or runny nose. Denies any diarrhea, nausea or vomiting. Denies taking any medication for pain. Pain is intermittent and comes and goes. ED Past Medical Hx - Past Medical History Previous Medical History?: Yes Hx Deep Vein Thrombosis: (Unknown) Hx Arthritis: Yes (Neck, lower back) Additional medical history: Subarachnoid cyst T1-T5. Laminectomy L4-5. Past history of falls, multiple evaluations this emergency department - Surgical History Past Surgical History?: Yes Hx Cholecystectomy: Yes Additional Surgical History: laminectomy L4-L5 2003. right inguinal Hernia Repair - Family History Family history: hypertension - Social History Smoking Status: Unknown if ever smoked Substance Use Type: None - Medications Home Medications: Home Medications Medication Instructions Recorded Confirmed Last Taken Type clonazePAM [Klonopin] 1 mg PO TID #20 tablet 04/08/17 11/06/18 11/05/18 Rx oxyCODONE [roxiCODONE] 30 mg PO Q4H PRN 01/09/18 11/06/18 11/04/18 History Gabapentin 600 mg PO TID 11/06/18 11/06/18 11/05/18 History Morphine ER [Ms Contin ER] 30 mg PO TID 11/06/18 11/06/18 11/05/18 History Acetaminophen [Acetaminophen ER] 650 mg PO Q8H PRN #12 tablet.er 02/11/20 Unknown Rx ED Review of Systems ROS: Stated complaint: FACE/HEAD PAIN/UPSET STOMACH Other details as noted in HPI Constitutional: denies: chills, fever Eyes: denies: eye pain, eye discharge ENT: denies: ear pain, throat pain, congestion Respiratory: denies: cough, shortness of breath, wheezing Cardiovascular: denies: chest pain, palpitations, edema, syncope Gastrointestinal: abdominal pain. denies: nausea, vomiting, diarrhea, constipation, hematemesis, melena, hematochezia Genitourinary: denies: urgency, dysuria, frequency, hematuria, discharge, testicular pain Musculoskeletal: arthralgia. denies: back pain, joint swelling, myalgia Skin: denies: rash Neurological: headache. denies: numbness, paresthesias, confusion, abnormal gait, vertigo Physical Exam - Physical Exam Vital Signs: Vital Signs 02/10/20 02/11/20 02/11/20 22:07 01:50 02:57 Temperature 98.9 F 98.3 F Pulse Rate 70 67 Respiratory 18 18 18 Rate Blood Pressure 165/79 134/74 O2 Sat by Pulse 94 98 Oximetry ED Course Vital Signs 02/10/20 02/11/20 02/11/20 22:07 01:50 02:57 Temperature 98.9 F 98.3 F Pulse Rate 70 67 Respiratory 18 18 18 Rate Blood Pressure 165/79 134/74 O2 Sat by Pulse 94 98 Oximetry - Reevaluation(s) Reevaluation #1: 02/11/20 04:41 Patient received Tylenol 975 mg for pain. He stable and in no acute distress. ED Medical Decision Making - Lab Data Result diagrams: 02/11/20 01:27 02/11/20 01:27 Lab Results 02/11/20 02/11/20 02/11/20 Range/Units 01:27 01:27 Unknown WBC 6.2 (4.5-11.0) K/mm3 RBC 4.65 (3.65-5.03) M/mm3 Hgb 12.8 (11.8-15.2) gm/dl Hct 38.6 (35.5-45.6) % MCV 83 L (84-94) fl MCH 27 L (28-32) pg MCHC 33 (32-34) % RDW 16.1 H (13.2-15.2) % Plt Count 319 (140-440) K/mm3 Lymph % (Auto) 23.8 (13.4-35.0) % [place] % (Auto) 12.9 H (0.0-7.3) % Eos % (Auto) 0.7 (0.0-4.3) % Baso % (Auto) 1.7 (0.0-1.8) % Lymph # 1.5 (1.2-5.4) K/mm3 [place] # 0.8 (0.0-0.8) K/mm3 Eos # 0.0 (0.0-0.4) K/mm3 Baso # 0.1 (0.0-0.1) K/mm3 Seg Neutrophils % 60.9 (40.0-70.0) % Seg Neutrophils # 3.7 (1.8-7.7) K/mm3 Sodium 138 (137-145) mmol/L Potassium 3.7 (3.6-5.0) mmol/L Chloride 97.8 L (98-107) mmol/L Carbon Dioxide 23 (22-30) mmol/L Anion Gap 21 mmol/L BUN 10 (9-20) mg/dL Creatinine 0.9 (0.8-1.5) mg/dL Estimated GFR > 60 ml/min BUN/Creatinine Ratio 11 % Glucose 87 (75-100) mg/dL Calcium 9.3 (8.4-10.2) mg/dL Total Bilirubin 0.90 (0.1-1.2) mg/dL AST 16 (5-40) units/L ALT 10 (7-56) units/L Alkaline Phosphatase 99 (35-129) units/L Total Protein 7.3 (6.3-8.2) g/dL Albumin 4.2 (3.9-5) g/dL Albumin/Globulin Ratio 1.4 % Lipase 11 L (13-60) units/L Urine Color Yellow (Yellow) Urine Turbidity Clear (Clear) Urine pH 5.0 (5.0-7.0) Ur Specific [place] 1.014 (1.003-1.030) Urine Protein <15 mg/dl (Negative) mg/dL Urine Glucose (UA) Neg (Negative) mg/dL Urine Ketones Neg (Negative) mg/dL Urine Blood Neg (Negative) Urine Nitrite Neg (Negative) Urine Bilirubin Neg (Negative) Urine Urobilinogen < 2.0 (<2.0) mg/dL Ur Leukocyte Esterase Neg (Negative) Urine WBC (Auto) 1.0 (0.0-6.0) /HPF Urine RBC (Auto) 4.0 (0.0-6.0) /HPF U Epithel Cells (Auto) < 1.0 (0-13.0) /HPF - Radiology Data Radiology results: report reviewed CT scan of the head and brain without contrast and abdomen and pelvis with contrast dictated by radiologist and report reviewed by myself. Please see details below Findings [address] [address] Cat Scan Report Signed Patient: CHUCK VARGAS MR#: [id number] : 1950 Acct:[id number] Age/Sex: 69 / M ADM Date: 02/10/20 Loc: ED Attending Dr: Ordering Physician: ANAND SCHMITT Date of Service: 02/11/20 Procedure(s): CT head/brain wo con Accession Number(s): [id number] cc: ANAND SCHMITT CT HEAD/BRAIN WO CON INDICATION / CLINICAL INFORMATION: Headache. TECHNIQUE: All CT scans at this location are performed using CT dose reduction for ALARA by means of automated exposure control. COMPARISON: None available. FINDINGS: The ventricular system is normal in size and configuration. No focal lesion or mass effect is seen. There is no evidence of intracranial hemorrhage or major vessel occlusion. The calvarium is intact. The visualized paranasal sinuses and mastoid air cells are clear. IMPRESSION: No acute abnormality. Signer Name: Obie Peña MD Signed: 02/11/2020 3:57 AM Workstation Name: [id number] Transcribed By: RT Dictated By: Obie Peña MD Electronically Authenticated By: Obie Peña MD Signed Date/Time: 02/11/20356 DD/ 5 TD/TT: Findings [address] [address] Cat Scan Report Signed Patient: CHUCK VARGAS MR#: [id number] : 1950 Acct:[id number] Age/Sex: 69 / M ADM Date: 02/10/20 Loc: ED Attending Dr: Ordering Physician: ANAND SCHMITT Date of Service: 02/11/20 Procedure(s): CT abdomen pelvis w con Accession Number(s): [id number] cc: ANAND SCHMITT CT OF THE ABDOMEN AND PELVIS WITH INTRAVENOUS CONTRAST INDICATION / CLINICAL INFORMATION: Abdominal pain. TECHNIQUE: The patient received 100 cc Omnipaque [address] scans at this location are performed using CT dose reduction for ALARA by means of automated exposure control. COMPARISON: None available. FINDINGS: ABDOMEN: The gallbladder is surgically absent. The liver, spleen, bile ducts, pancreas, adrenal glands, kidneys and bowel demonstrate no significant abnormality. There are atherosclerotic calcifications involving aorta without aneurysm. No adenopathy is seen. The lung bases are clear. PELVIS: The distal ureters, urinary bladder and prostate gland are normal. The appendix is not seen and there is no evidence of diverticulitis. No abnormal mass or fluid collection is present. There are tiny bilateral fat-containing inguinal hernias without complication. There is mild spondylosis without acute osseous abnormality. IMPRESSION: No acute abnormality is identified. Signer Name: Obie Peña MD Signed: 02/11/2020 4:00 AM Workstation Name: [id number] Transcribed By: RT Dictated By: Obie Peña MD Electronically Authenticated By: Obie Peña MD Signed Date/Time: 02/11/20399 DD/ 0357 TD/TT: - Medical Decision Making This is a 69-year-old male presented emergency room with generalized pain. CT scan of the abdomen pelvis with IV contrast shows no acute findings, CT scan of the head and brain without contrast shows no acute findings. Patient sinuses are normal. Patient receive Tylenol 975 mg emergency room which relieved this pain. CBC and chemistry and urinalysis within normal limits. Diagnosis treatment plan and laboratory results discussed with patient and he voiced understanding. Patient discharged home in stable condition with prescription for Tylenol and to follow-up with his primary care physician in 1 to 2 days and he voiced understanding - Differential Diagnosis ICH vs ECH abnormality,colitis, GBD,UTI, Constipation Critical care attestation.: If time is entered above; I have spent that time in minutes in the direct care of this critically ill patient, excluding procedure time. ED Disposition Clinical Impression: Abdominal pain Qualifiers: Abdominal location: unspecified location Qualified Code(s): R10.9 - Unspecified abdominal pain Headache Qualifiers: Headache type: unspecified Headache chronicity pattern: acute headache Intractability: not intractable Qualified Code(s): R51 - Headache Disposition: DC-01 TO HOME OR SELFCARE Is pt being admited?: No Does the pt Need Aspirin: No Condition: Stable Instructions: Acute Headache (ED), Abdominal Pain (ED) Additional Instructions: Please follow-up with your primary care doctor and if you do not have a primary care follow-up at [facility] as directed. Take medication as prescribed If your condition worsens, return to the emergency room Referrals: PRIMARY CARE, [Primary Care Provider] - 02/12/20 Follow-up, [facility] PCP [Other] - 02/12/20
[2020-02-11 01:55] LABS: Basophils # (Auto) 0.1 K/mm3 (0.0-0.1); Basophils % (Auto) 1.7 % (0.0-1.8); Eosinophils % (Auto) 0.7 % (0.0-4.3); Hematocrit 38.6 % (35.5-45.6); Hemoglobin 12.8 gm/dl (11.8-15.2); Lymphocytes # (Auto) 1.5 K/mm3 (1.2-5.4); Lymphocytes % (Auto) 23.8 % (13.4-35.0); Mean Corpuscular HGB Conc 33 % (32-34); Mean Corpuscular Volume 83 fl (84-94); Monocytes # (Auto) 0.8 K/mm3 (0.0-0.8); Monocytes % (Auto) 12.9 % (0.0-7.3); Platelet Count 319 K/mm3 (140-440); Red Blood Count 4.65 M/mm3 (3.65-5.03); Red Cell Distribution Width 16.1 % (13.2-15.2)
[2020-02-11 01:57] VITALS: BP 134/74
[2020-02-11 02:19] LABS: Alanine Aminotransferase 10 units/L (7-56); Albumin 4.2 g/dL (3.9-5); BUN/Creatinine Ratio 11; Blood Urea Nitrogen 10 mg/dL (9-20); Calcium 9.3 mg/dL (8.4-10.2); Hemolysis Index 10
[2020-02-11] MEDS ORDERED: ACETAMINOPHEN 325 MG TAB PO ONE (02:48)
[2020-02-11 03:30] LABS: Bilirubin,Urine NEG (Negative); Blood,Urine NEG (Negative); Color,Urine Yellow (Yellow); Protein,Urine <15 mg/dL mg/dL (Negative); Urobilinogen,Urine < 2.0 mg/dL (<2.0)
--- NOTE | 2020-02-11 04:02 | Cat Scan Report ---
CT HEAD/BRAIN WO CON INDICATION / CLINICAL INFORMATION: Headache. TECHNIQUE: All CT scans at this location are performed using CT dose reduction for ALARA by means of automated e xposure control. COMPARISON: None available. FINDINGS: The ventricular system is normal in size and configuration. No focal lesion or mass effect is seen. T here is no evidence of intracranial hemorrhage or major vessel occlusion. The calvarium is intact. The visualized paranasal sinuses and mastoid air cells are clear. IMPRESSION: No acute abnormality. Signer Name: Obie Peña MD Signed: 02/11/2020 3:57 AM Workstation Name: [id number]
--- NOTE | 2020-02-11 04:05 | Cat Scan Report ---
CT OF THE ABDOMEN AND PELVIS WITH INTRAVENOUS CONTRAST INDICATION / CLINICAL INFORMATION: Abdominal pain. TECHNIQUE: The patient received 100 cc Omnipaque [address] scans at this location are performed using CT dose reduction for ALARA by means of automated exposure control. COMPARISON: None available. FINDINGS: ABDOMEN: The gallbladder is surgically absent. The liver, spleen, bile ducts, pancreas, adrenal gland s, kidneys and bowel demonstrate no significant abnormality. There are atherosclerotic calcifications involving aorta without aneurysm. No adenopathy is seen. The lung bases are clear. PELVIS: The distal ureters, urinary bladder and prostate gland are normal. The appendix is not seen a nd there is no evidence of diverticulitis. No abnormal mass or fluid collection is present. There are tiny bilateral fat-containing inguinal hernias without complication. There is mild spondylosis witho ut acute osseous abnormality. IMPRESSION: No acute abnormality is identified. Signer Name: Obie Peña MD Signed: 02/11/2020 4:00 AM Workstation Name: [id number]
== END 2020-02-11 05:03 | disposition home or self-care (01) ==
LOC: ED 21:56
DX: R10.84 Generalized abdominal pain (principal); R51 Headache; M47.812 Spondylosis without myelopathy or radiculopathy, cervical region; M47.816 Spondylosis without myelopathy or radiculopathy, lumbar region; Z86.718 Personal history of other venous thrombosis and embolism; Z79.899 Other long term (current) drug therapy; Z98.890 Other specified postprocedural states; Z90.49 Acquired absence of other specified parts of digestive tract; Z82.49 Family history of ischemic heart disease and other diseases of the circulatory system; Z88.8 Allergy status to other drugs, medicaments and biological substances
CPT/HCPCS: 36415; 70450; 74177; 80053; 81001; 83690; 85025; 99284; Q9967; Q0162

== ENCOUNTER 2020-02-27 22:53 | Emergency (ER) | payer MEDICARE ==
[2020-02-27] MEDS ORDERED: ASPIRIN 325 MG TAB PO ONE (23:01)
--- NOTE | 2020-02-27 23:53 | Emergency Department Report ---
ED Chest Pain HPI - General Chief Complaint: Chest Pain Stated Complaint: CP/NUMBNESS IN L ARM Time Seen by Provider: 02/27/20 23:21 Source: patient Mode of arrival: Ambulatory Limitations: No Limitations - History of Present Illness Initial Comments: Patient is a 69-year-old male presents emergency room with complaints of chest pain described as a tightness that began around 6 PM tonight. He states that it radiates down his left arm. He states he has shortness of breath and pain with taking a deep breath. He denies any radiation to the back. He denies any nausea or vomiting. He denies any sick contacts or recent travel. Patient states that it has been a few years since he has had a stress test. he is a non- smoker. He states he is a former drinker. 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 He states he has an allergy to Toradol. In 2018, patient had a CT angio chest which showed a 4.8 cm ascending aortic aneurysm, patient was recommended by cardiology at that time to have a cardiac catheterization but refused, patient has not followed up with a trailer sections assembler since that visit in 2018. - Related Data Home Medications Medication Instructions Recorded Confirmed Last Taken oxyCODONE [roxiCODONE] 30 mg PO Q4H PRN 01/09/18 11/06/18 11/04/18 Gabapentin 600 mg PO TID 11/06/18 11/06/18 11/05/18 Morphine ER [Ms Contin ER] 30 mg PO TID 11/06/18 11/06/18 11/05/18 Previous Rx's Medication Instructions Recorded Last Taken Type clonazePAM [Klonopin] 1 mg PO TID #20 tablet 04/08/17 11/05/18 Rx Acetaminophen [Acetaminophen ER] 650 mg PO Q8H PRN #12 tablet.er 02/11/20 Unknown Rx Allergies Allergy/AdvReac Type Severity Reaction Status Date / Time ketorolac tromethamine Allergy Rash Verified 02/21/17 11:48 [From Toradol] Heart Score - HEART Score History: Moderately suspicious EKG: Normal Age: > 65 Risk factors: 1-2 risk factors Troponin: < normal limit HEART Score: 4 ED Review of Systems ROS: Stated complaint: CP/NUMBNESS IN L ARM Other details as noted in HPI Comment: All other systems reviewed and negative ED Past Medical Hx - Past Medical History Previous Medical History?: Yes Hx Deep Vein Thrombosis: No Hx Arthritis: Yes (Neck, lower back) Additional medical history: Subarachnoid cyst T1-T5. Laminectomy L4-5. Past history of falls, multiple evaluations this emergency department - Surgical History Past Surgical History?: Yes Hx Cholecystectomy: Yes Additional Surgical History: laminectomy L4-L5 2003. right inguinal Hernia Repair - Social History Smoking Status: Never Smoker Substance Use Type: None - Medications Home Medications: Home Medications Medication Instructions Recorded Confirmed Last Taken Type clonazePAM [Klonopin] 1 mg PO TID #20 tablet 04/08/17 11/06/18 11/05/18 Rx oxyCODONE [roxiCODONE] 30 mg PO Q4H PRN 01/09/18 11/06/18 11/04/18 History Gabapentin 600 mg PO TID 11/06/18 11/06/18 11/05/18 History Morphine ER [Ms Contin ER] 30 mg PO TID 11/06/18 11/06/18 11/05/18 History Acetaminophen [Acetaminophen ER] 650 mg PO Q8H PRN #12 tablet.er 02/11/20 Unknown Rx ED Physical Exam - General Limitations: No Limitations General appearance: alert, in no apparent distress - Head Head exam: Present: atraumatic, normocephalic - Eye Eye exam: Present: normal appearance - ENT ENT exam: Present: mucous membranes moist - Respiratory Respiratory exam: Present: normal lung sounds bilaterally. Absent: respiratory distress, wheezes, rales, rhonchi, stridor, chest wall tenderness, accessory muscle use, decreased breath sounds, prolonged expiratory - Cardiovascular Cardiovascular Exam: Present: regular rate, normal rhythm, normal heart sounds. Absent: systolic murmur, diastolic murmur, rubs, gallop - Neurological Exam Neurological exam: Present: alert, oriented X3 - Psychiatric Psychiatric exam: Present: normal affect, normal mood - Skin Skin exam: Present: warm, dry, intact ED Course Vital Signs 02/27/20 02/27/20 02/27/20 22:58 23:23 23:27 Temperature 97.9 F Pulse Rate 71 79 Respiratory 18 12 18 Rate Blood Pressure 164/91 138/92 O2 Sat by Pulse 98 99 100 Oximetry 02/27/20 02/28/20 02/28/20 23:30 00:31 00:45 Temperature Pulse Rate 77 Respiratory 12 Rate Blood Pressure 162/88 162/88 162/88 O2 Sat by Pulse 99 99 99 Oximetry 02/28/20 02/28/20 02/28/20 01:01 01:25 01:30 Temperature Pulse Rate 65 Respiratory 13 13 Rate Blood Pressure 162/88 162/88 159/81 O2 Sat by Pulse 100 100 100 Oximetry 02/28/20 02/28/20 02/28/20 01:45 02:00 02:15 Temperature Pulse Rate 60 58 L 60 Respiratory 11 L 12 10 L Rate Blood Pressure 159/81 143/79 143/79 O2 Sat by Pulse 98 98 98 Oximetry 02/28/20 02/28/20 02:31 02:45 Temperature Pulse Rate 66 60 Respiratory 14 14 Rate Blood Pressure 130/65 130/65 O2 Sat by Pulse 99 99 Oximetry LLOYD score - Lloyd Score Age > 65: (1) Yes Aspirin use within the Past 7 Days: (0) No 3 or more CAD Risk Factors: (0) No 2 or more Angina events in past 24 hrs: (0) No Known CAD with more than 50% Stenosis: (0) No Elevated Cardiac Markers: (0) No ST Deviation Greater than 0.5mm: (0) No LLOYD Score: 1 ED Medical Decision Making - Lab Data Result diagrams: 02/27/20 23:35 02/27/20 23:35 Lab Results 02/27/20 02/27/20 02/27/20 Range/Units 23:35 23:35 23:35 WBC 5.6 (4.5-11.0) K/mm3 RBC 4.42 (3.65-5.03) M/mm3 Hgb 12.5 (11.8-15.2) gm/dl Hct 37.5 (35.5-45.6) % MCV 85 (84-94) fl MCH 28 (28-32) pg MCHC 33 (32-34) % RDW 16.7 H (13.2-15.2) % Plt Count 195 (140-440) K/mm3 Lymph % (Auto) 29.6 (13.4-35.0) % [place] % (Auto) 12.7 H (0.0-7.3) % Eos % (Auto) 1.5 (0.0-4.3) % Baso % (Auto) 1.1 (0.0-1.8) % Lymph # 1.6 (1.2-5.4) K/mm3 [place] # 0.7 (0.0-0.8) K/mm3 Eos # 0.1 (0.0-0.4) K/mm3 Baso # 0.1 (0.0-0.1) K/mm3 Seg Neutrophils % 55.1 (40.0-70.0) % Seg Neutrophils # 3.1 (1.8-7.7) K/mm3 Sodium 136 L (137-145) mmol/L Potassium 3.9 (3.6-5.0) mmol/L Chloride 101.3 (98-107) mmol/L Carbon Dioxide 24 (22-30) mmol/L Anion Gap 15 mmol/L BUN 6 L (9-20) mg/dL Creatinine 0.8 (0.8-1.5) mg/dL Estimated GFR > 60 ml/min BUN/Creatinine Ratio 8 % Glucose 109 H (75-100) mg/dL Calcium 9.3 (8.4-10.2) mg/dL Total Bilirubin 0.90 (0.1-1.2) mg/dL Direct Bilirubin < 0.2 (0-0.2) mg/dL Indirect Bilirubin 0.7 mg/dL AST 21 (5-40) units/L ALT 11 (7-56) units/L Alkaline Phosphatase 93 (35-129) units/L Troponin T < 0.010 (0.00-0.029) ng/mL NT-Pro-B Natriuret Pep 46.89 (0-900) pg/mL Total Protein 7.0 (6.3-8.2) g/dL Albumin 4.4 (3.9-5) g/dL Albumin/Globulin Ratio 1.7 % 02/28/20 Range/Units 02:24 WBC (4.5-11.0) K/mm3 RBC (3.65-5.03) M/mm3 Hgb (11.8-15.2) gm/dl Hct (35.5-45.6) % MCV (84-94) fl MCH (28-32) pg MCHC (32-34) % RDW (13.2-15.2) % Plt Count (140-440) K/mm3 Lymph % (Auto) (13.4-35.0) % [place] % (Auto) (0.0-7.3) % Eos % (Auto) (0.0-4.3) % Baso % (Auto) (0.0-1.8) % Lymph # (1.2-5.4) K/mm3 [place] # (0.0-0.8) K/mm3 Eos # (0.0-0.4) K/mm3 Baso # (0.0-0.1) K/mm3 Seg Neutrophils % (40.0-70.0) % Seg Neutrophils # (1.8-7.7) K/mm3 Sodium (137-145) mmol/L Potassium (3.6-5.0) mmol/L Chloride (98-107) mmol/L Carbon Dioxide (22-30) mmol/L Anion Gap mmol/L BUN (9-20) mg/dL Creatinine (0.8-1.5) mg/dL Estimated GFR ml/min BUN/Creatinine Ratio % Glucose (75-100) mg/dL Calcium (8.4-10.2) mg/dL Total Bilirubin (0.1-1.2) mg/dL Direct Bilirubin (0-0.2) mg/dL Indirect Bilirubin mg/dL AST (5-40) units/L ALT (7-56) units/L Alkaline Phosphatase (35-129) units/L Troponin T < 0.010 (0.00-0.029) ng/mL NT-Pro-B Natriuret Pep (0-900) pg/mL Total Protein (6.3-8.2) g/dL Albumin (3.9-5) g/dL Albumin/Globulin Ratio % - EKG Data EKG shows normal: sinus rhythm, axis, QRS complexes, ST-T waves Rate: normal - EKG Data 02/28/20 01:51 WI interval 214 no STEMI - Radiology Data Radiology results: report reviewed CHEST 2 VIEWS INDICATION / CLINICAL INFORMATION: Chest pain. COMPARISON: 11/05/18 FINDINGS: SUPPORT DEVICES: None. HEART / MEDIASTINUM: No significant abnormality. LUNGS / PLEURA: No significant pulmonary or pleural abnormality. No pneumothorax. ADDITIONAL FINDINGS: No significant additional findings. IMPRESSION: 1. No acute findings. No significant change. Signer Name: Radha Dukes MD Signed: 02/28/2020 12:35 AM Workstation Name: [id number] Transcribed By: DT Dictated By: Ramiro Dukes MD Electronically Authenticated By: Ramiro Dukes MD Signed Date/Time: 02/28/2034 DD/ TD/TT: CTA CHEST WITH CONTRAST INDICATION / CLINICAL INFORMATION: P.E. PROTOCOL!!! Chest pain with S.O.B, hx of ascending aortic aneurysm. P.E. vs. Dissection 350 / 100ml's was used for this exam.. TECHNIQUE: Axial CT images were obtained through the chest after injection of 100 mL Omnipaque 350 IV contrast. 3 plane MIP and/or 3D reconstructions were produced. All CT scans at this location are performed using CT dose reduction for ALARA by means of automated exposure control. COMPARISON: CT dated 10/18/18 FINDINGS: PULMONARY ARTERIES: No pulmonary emboli. THORACIC AORTA: Ectasia of the ascending thoracic aorta is unchanged with the mid ascending thoracic aorta measuring 4.5 cm. No aortic dissection or other acute abnormality. HEART: No significant abnormality. CORONARY ARTERIES: Mild coronary artery calcification, unchanged. MEDIASTINUM / JULIA: No significant abnormality. PLEURA: No pleural effusion. No pneumothorax. LUNGS: No acute air space or interstitial disease. ADDITIONAL FINDINGS: None. UPPER ABDOMEN: Cholecystectomy. No acute abnormality. SKELETAL STRUCTURES: No significant osseous abnormality. IMPRESSION: 1. No CT evidence for pulmonary embolism. 2. Stable ectasia of the ascending thoracic aorta. No aortic dissection or other acute abnormality. 3. No acute pulmonary or pleural findings. Signer Name: Radha Dukes MD Signed: 02/28/2020 1:38 AM Workstation Name: [id number] Transcribed By: CHARBEL Dictated By: Ramiro Dukes MD Electronically Authenticated By: Ramiro Dukes MD Signed Date/Time: 02/28/20137 DD/ 3 TD/TT: - Medical Decision Making Patient is a 69-year-old male presents emergency room with complaints of chest pain described as a tightness that began around 6 PM tonight. He states that it radiates down his left arm. He states he has shortness of breath and pain with taking a deep breath. He denies any radiation to the back. He denies any nausea or vomiting. He denies any sick contacts or recent travel. Patient states that it has been a few years since he has had a stress test. he is a non- smoker. He states he is a former drinker. 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 He states he has an allergy to Toradol. In 2018, patient had a CT angio chest which showed a 4.8 cm ascending aortic aneurysm, patient was recommended by cardiology at that time to have a cardiac catheterization but refused, patient has not followed up with a trailer sections assembler since that visit in 2018. Vitals are stable. No abnormality on physical examination as documented in chart. Labs are normal. Troponin is negative x2. BNP is normal. CXR: 1. No a cute findings. No significant change. CT angio chest: 1. No CT evidence for pulmonary embolism. 2. Stable ectasia of the ascending thoracic aorta. No aortic dissection or other acute abnormality. 3. No acute pulmonary or pleural findings. EKG with prolonged WI interval otherwise normal. Patient given an aspirin. Discussed all results with patient. Discussed case with Dr. Jass Figueroa, ER attending who agrees with admission. Patient's heart score is 4, LLOYD score is 1. Discussed with patient that he would need to be admitted for further cardiac work-up. Patient states that he cannot leave his at home alone and has decided to leave AGAINST MEDICAL ADVICE. I discussed in detail with patient the risk of leaving AGAINST MEDICAL ADVICE including but not limited to , disability, permanent loss of quality of life. The patient is alert and oriented x3. The patient exhibits decision-making capacity. The patient is free from distracting injury. The risk of leaving without a complete medical examination, and AGAINST MEDICAL ADVICE, were explained to the patient, and they included , disability, paralysis, permanent loss of quality of life. Patient verbalized understanding to these and was able to articulate these risk in their own words. - Differential Diagnosis ACS, PE, PTX, aortic dissection, PNA, CHF, CM, COPD, anemia Critical care attestation.: If time is entered above; I have spent that time in minutes in the direct care of this critically ill patient, excluding procedure time. ED Disposition Clinical Impression: SOB (shortness of breath) Chest pain Qualifiers: Chest pain type: unspecified Qualified Code(s): R07.9 - Chest pain, unspecified Disposition: - LEFT AGAINST MED ADVICE Is pt being admited?: No Does the pt Need Aspirin: Yes (given) Condition: Undetermined Instructions: Chest Pain (ED) Additional Instructions: You are leaving today AGAINST MEDICAL ADVICE and without a full evaluation. You need to follow-up with a trailer sections assembler as soon as possible. Return to the emergency room immediately for any new or worsening symptoms or if you are ready to be admitted for further work-up. Referrals: [facility] [Provider Group] - [facility] [Provider Group] - [facility] Forms: AMA Form Time of Disposition: 02:56 Print Language: [place]
[2020-02-27 23:56] LABS: Basophils # (Auto) 0.1 K/mm3 (0.0-0.1); Basophils % (Auto) 1.1 % (0.0-1.8); Eosinophils # (Auto) 0.1 K/mm3 (0.0-0.4); Eosinophils % (Auto) 1.5 % (0.0-4.3); Hematocrit 37.5 % (35.5-45.6); Hemoglobin 12.5 gm/dl (11.8-15.2); Lymphocytes # (Auto) 1.6 K/mm3 (1.2-5.4); Lymphocytes % (Auto) 29.6 % (13.4-35.0); Mean Corpuscular HGB Conc 33 % (32-34); Mean Corpuscular Volume 85 fl (84-94); Monocytes # (Auto) 0.7 K/mm3 (0.0-0.8); Monocytes % (Auto) 12.7 % (0.0-7.3); Platelet Count 195 K/mm3 (140-440); Red Blood Count 4.42 M/mm3 (3.65-5.03); Red Cell Distribution Width 16.7 % (13.2-15.2)
[2020-02-28 00:10] LABS: BUN/Creatinine Ratio 8; Blood Urea Nitrogen 6 mg/dL (9-20); Calcium 9.3 mg/dL (8.4-10.2); Hemolysis Index 62
[2020-02-28 00:38] LABS: Alanine Aminotransferase 11 units/L (7-56); Albumin 4.4 g/dL (3.9-5)
--- NOTE | 2020-02-28 00:39 | XRay Report ---
CHEST 2 VIEWS INDICATION / CLINICAL INFORMATION: Chest pain. COMPARISON: 11/05/18 FINDINGS: SUPPORT DEVICES: None. HEART / MEDIASTINUM: No significant abnormality. LUNGS / PLEURA: No significant pulmonary or pleural abnormality. No pneumothorax. ADDITIONAL FINDINGS: No significant additional findings. IMPRESSION: 1. No acute findings. No significant change. Signer Name: Radha Dukes MD Signed: 02/28/2020 12:35 AM Workstation Name: [id number]
[2020-02-28 00:40] LABS: Bilirubin,Direct < 0.2 mg/dL (0-0.2)
[2020-02-28] MEDS ORDERED: LORazepam 1 MG TAB ONE (01:05)
--- NOTE | 2020-02-28 01:43 | Cat Scan Report ---
CTA CHEST WITH CONTRAST INDICATION / CLINICAL INFORMATION: P.E. PROTOCOL!!! Chest pain with S.O.B, hx of ascending aortic aneurysm. P.E. vs. Dissection 350 / 10 0ml's was used for this exam.. TECHNIQUE: Axial CT images were obtained through the chest after injection of 100 mL Omnipaque 350 IV contrast. 3 plane MIP and/or 3D reconstructions were produced. All CT scans at this location are performed usin g CT dose reduction for ALARA by means of automated exposure control. COMPARISON: CT dated 10/18/18 FINDINGS: PULMONARY ARTERIES: No pulmonary emboli. THORACIC AORTA: Ectasia of the ascending thoracic aorta is unchanged with the mid ascending thoracic aorta measuring 4.5 cm. No aortic dissection or other acute abnormality. HEART: No significant abnormality. CORONARY ARTERIES: Mild coronary artery calcification, unchanged. MEDIASTINUM / JULIA: No significant abnormality. PLEURA: No pleural effusion. No pneumothorax. LUNGS: No acute air space or interstitial disease. ADDITIONAL FINDINGS: None. UPPER ABDOMEN: Cholecystectomy. No acute abnormality. SKELETAL STRUCTURES: No significant osseous abnormality. IMPRESSION: 1. No CT evidence for pulmonary embolism. 2. Stable ectasia of the ascending thoracic aorta. No aortic dissection or other acute abnormality. 3. No acute pulmonary or pleural findings. Signer Name: Radha Dukes MD Signed: 02/28/2020 1:38 AM Workstation Name: [id number]
[2020-02-28 03:15] VITALS: BP 130/66
== END 2020-02-28 03:20 | disposition left against medical advice (07) ==
LOC: ED 22:53
DX: R07.89 Other chest pain (principal); R06.02 Shortness of breath; M13.88 Other specified arthritis, other site; Z90.49 Acquired absence of other specified parts of digestive tract; Z98.890 Other specified postprocedural states; Z79.899 Other long term (current) drug therapy; Z88.6 Allergy status to analgesic agent
CPT/HCPCS: 36415; 71046; 71275; 80048; 80076; 83880; 84484; 85025; 93005; 93010; 99285; Q9967